=== PATIENT | female | born 1980 | race African-American/Black ===

== ENCOUNTER 2016-11-27 21:29 | Emergency (ER) | payer MEDICAID ==
[2016-11-27 21:48] LABS: ABSOLUTE BASOPHILS # (AUTO) 0.1 10^3/uL (0.0-0.2); ABSOLUTE EOSINOPHILS # (AUTO) 0.2 10^3/uL (0.0-0.6); ABSOLUTE LYMPHOCYTES (AUTO) 2.5 10^3/uL (0.5-4.7); ABSOLUTE MONOCYTES (AUTO) 0.9 10^3/uL (0.1-1.4); ABSOLUTE NEUT (AUTO) 7.1 10^3/uL (1.7-8.2); BASOPHILS % (AUTO) 0.7 % (0-2); EOSINOPHILS % (AUTO) 1.5 % (0-6); HEMATOCRIT 41.9 % (36.0-47.0); HEMOGLOBIN 13.5 g/dL (12.0-15.5); HGB HCT DIFFERENCE -1.4; LYMPHOCYTES % (AUTO) 23.4 % (13-45); MEAN CORPUSCULAR HEMOGLOBIN 25.2 pg (27.0-33.4); MEAN CORPUSCULAR HGB CONC 32.1 g/dL (32.0-36.0); MEAN CORPUSCULAR VOLUME 78 fl (80-97); MONOCYTES % (AUTO) 8.2 % (3-13); RED BLOOD COUNT 5.35 10^6/uL (3.72-5.28); RED CELL DISTRIBUTION WIDTH 15.9 % (11.5-14.0); SEGMENTED NEUTROPHILS % (AUTO) 66.2 % (42-78); WHITE BLOOD COUNT 10.8 10^3/uL (4.0-10.5)
[2016-11-27] MEDS ORDERED: HALOPERIDOL LACTATE INJ 5 MG/1 ML VIAL IV ONE (23:17)
[2016-11-27] MEDS ORDERED: KETOROLAC TROMETHAMINE INJ/PF 30 MG/1 ML SDV IV ONE (23:17)
[2016-11-27] MEDS ORDERED: NORMAL SALINE 1000 ML 1,000 ML IV ONE (23:18)
[2016-11-27 23:19] LABS: ALANINE AMINOTRANSFERASE 21 U/L (9-52); ALBUMIN 3.7 g/dL (3.5-5.0); ALKALINE PHOSPHATASE 100 U/L (38-126); ANION GAP 9 (5-19); ASPARTATE AMINO TRANSFERASE 31 U/L (14-36); BILIRUBIN,DIRECT 0.4 mg/dL (0.0-0.4); BILIRUBIN,TOTAL 0.6 mg/dL (0.2-1.3); BLOOD UREA NITROGEN 13 mg/dL (7-20); CARBON DIOXIDE 22 mmol/L (22-30); CHLORIDE 106 mmol/L (98-107); CREATININE RESULT 0.98 mg/dL (0.52-1.25); GLUCOSE 94 mg/dL (75-110); POTASSIUM 3.9 mmol/L (3.6-5.0); SODIUM 137.2 mmol/L (137-145); TOTAL PROTEIN 6.3 g/dL (6.3-8.2)
--- NOTE | 2016-11-27 23:21 | ER Document Report ---
ED General - General Chief Complaint: Syncope Stated Complaint: SYNCOPY Time Seen by Provider: 11/27/16 22:13 Notes: Patient is a 36 year old female who presents with multiple complaints. Her main concern appears to be that she had a syncopal episode prior to arrival. Patient states when she was cooking dinner she felt lightheaded, nauseated and like she was about to pass out. She apparently then fell to the floor spilling her water but did not have a complete loss of consciousness. Patient arrives stating that she feels "terrible". Patient is a difficult historian and is reluctant to provide additional details asking to go home almost immediately upon my initial assessment. She does also note that she has had a constant, dull, aching frontal headache since yesterday. Lights and sounds worsen the headache. She has not tried anything to improve the headache. Denies any associated fever or constitutional symptoms. She has not had any diarrhea, vomiting, chest pain, shortness of breath, neck pain or altered mental status. She has not seen her primary care doctor regarding today's concerns. TRAVEL OUTSIDE OF THE [place] IN LAST 30 DAYS: No - Related Data Allergies/Adverse Reactions: latex [Latex] Allergy (Verified 11/27/16 21:48) morphine [Morphine] Allergy (Verified 11/27/16 21:48) Home Medications: Current Home Medications Montelukast Sodium 10 mg PO DAILY 11/27/16 [History] Past Medical History - General Information source: Patient - Social History Smoking Status: Current Some Day Smoker Frequency of alcohol use: Occasional Drug Abuse: None Lives with: Family Family History: Reviewed & Not Pertinent Past Surgical History: Reports: Hx Section - x3, Hx Tubal Ligation Review of Systems - Review of Systems Notes: Constitutional: Negative for fever. HENT: Negative for sore throat. Eyes: Negative for visual changes. Cardiovascular: Negative for chest pain. Respiratory: Negative for shortness of breath. Gastrointestinal: Negative for abdominal pain, vomiting or diarrhea. Genitourinary: Negative for dysuria. Musculoskeletal: Negative for back pain. Skin: Negative for rash. Neurological: Positive for headache 10 point ROS negative except as marked above and in HPI. Physical Exam - Vital signs Vitals: Temp Resp BP Pulse Ox 98.2 F 18 115/75 98 11/27/16 21:40 11/27/16 21:40 11/27/16 21:40 11/27/16 21:40 Interpretation: Normal Notes: PHYSICAL EXAMINATION: GENERAL: Appears somewhat uncomfortable but in no acute distress HEAD: Atraumatic, normocephalic. EYES: Pupils equal round and reactive to light, extraocular movements intact, sclera anicteric, conjunctiva are normal. ENT: nares patent, oropharynx clear without exudates. Moist mucous membranes. NECK: Normal range of motion, supple without lymphadenopathy LUNGS: Breath sounds clear to auscultation bilaterally and equal. No wheezes rales or rhonchi. HEART: Regular rate and rhythm without murmurs ABDOMEN: Soft, nontender, normoactive bowel sounds. No guarding, no rebound. No masses appreciated. EXTREMITIES: Normal range of motion, no pitting or edema. No cyanosis. NEUROLOGICAL: Face symmetric. Tongue protrudes midline. Extraocular motions intact. Pupils are 2 mm and equally reactive. Normal speech. 5 out of 5 strength in both the distal and proximal upper and lower extremities bilaterally. Sensation is grossly intact throughout. Finger to nose testing normal. Pronator drift normal. PSYCH: Guarded on contact. Reluctant to open her eyes on exam. SKIN: Warm, Dry, normal turgor, no rashes or lesions noted. Course - Re-evaluation Re-evalutation: 11/27/16 23:19 Patient presents with multiple vague complaints that did not appear to be concerning for any acute life-threatening pathology. Vitals are within normal limits at triage and at time of discharge. There is a history of a possible syncopal episode prior to arrival. Patient does deny losing consciousness. Patient normotensive, alert, without focal neurologic deficits at time of arrival. Denies syncope was during exertion. No preceding symptoms of palpitations, chest pain, or shortness of breath. Patient asymptomatic at time of arrival. EKG is without evidence of HCOM, right heart strain, ST changes to suggest ischemia, prolong QTc, delta wave, epsilon wave, or Brugada syndrome. Patient denies any family history of sudden cardiac , personal history of of structural heart disease. Patient denies any symptoms to suggest an acute PE , IN, TAD, SAH, seizure, or acute GI bleed as the etiology of their syncope today. On exam, no murmurs to suggest critical aortic stenosis as possible etiology. Patient is also complaining of a headache that she has had approximately for 2 days. Headache was not maximal in onset, patient has no focal neurologic deficits, no nuchal rigidity, vital signs within normal limits , no papilledema, and patient is overall well in appearance. Based on clinical history and examination I do not suspect an acute subarachnoid hemorrhage, dural venous sinus thrombosis, acute meningitis, or intercranial mass. Given my low clinical suspicion for any acute life-threatening etiology, I do not feel advanced neuro imaging or laboratory testing is indicated at this time. Will proceed with headache cocktail and reassess. 0100 Patient has had significant improvement in her overall feeling of being unwell. Her headache has resolved. Her labs are unremarkable. At this time will discharge with return precautions and follow-up recommendations. Verbal discharge instructions given a the bedside and opportunity for questions given. Medication warnings reviewed. Patient is in agreement with this plan and has verbalized understanding of return precautions and the need for primary care follow-up in the next 24-72 hours. - Vital Signs Vital signs: Temp Pulse Resp BP Pulse Ox 98.2 F 12 117/77 99 11/27/16 21:40 11/28/16 01:01 11/28/16 01:00 11/28/16 01:01 - Laboratory Result Diagrams: 11/27/16 21:30 11/27/16 22:40 Laboratory results interpreted by me: 11/27/16 21:30 WBC 10.8 H RBC 5.35 H MCV 78 L MCH 25.2 L RDW 15.9 H - EKG Interpretation by Me Additional EKG results interpreted by me: 11/28/16 03:48 Normal sinus rhythm. Rate 72. No ST elevations or depressions. QTC is 443. Discharge - Discharge Clinical Impression: Syncope Qualifiers: Syncope type: unspecified Qualified Code(s): R55 - Syncope and collapse Fatigue Qualifiers: Fatigue type: unspecified Qualified Code(s): R53.83 - Other fatigue Headache Qualifiers: Headache type: unspecified Headache chronicity pattern: acute headache Intractability: not intractable Qualified Code(s): R51 - Headache Condition: Good Disposition: HOME, SELF-CARE Additional Instructions: You were seen today after an episode of passing out. Your EKG here is normal. At this time, we do not feel that your episode of passing out was from any life- threatening cause. Please drink plenty of fluids over the next several days. Return to emergency department if you have any further episodes of syncope, headache, weakness, numbness, chest pain, or shortness of breath. Please follow up closely with your primary care physician. Forms: Return to School, Return to Work
[2016-11-28 01:23] VITALS: BP 117/77
--- NOTE | 2016-11-28 07:32 | EKG REPORT ---
SEVERITY:- BORDERLINE ECG - SINUS RHYTHM NONSPECIFIC ST-T CHANGES- INFERIOR LEADS : Confirmed by: Kamar Parada MD 28-Nov-2016 07:32:10
== END 2016-11-28 01:29 | disposition home or self-care (01) ==
LOC: ER 21:29
DX: R55 Syncope and collapse (principal); R53.83 Other fatigue; R51 Headache; Z79.899 Other long term (current) drug therapy
CPT/HCPCS: 93005; 99285; 96361; 96374; 96375; 36415; 84703; 85025; 80053; 93010; J1630; J1885; J7030

== ENCOUNTER 2017-02-28 20:21 | Emergency (ER) | payer MEDICAID ==
[2017-02-28 20:27] VITALS: BP 134/66
[2017-02-28] MEDS ORDERED: AMOXICILLIN TRIHYDRATE 500 MG CAPSULE PO ONE (20:59)
--- NOTE | 2017-02-28 21:02 | ER Document Report ---
HPI - HPI Patient complains to provider of: facial pain, congestion, ear pain Pain Level: 5 Context: Patient is a 36-year-old female that comes emergency department for chief complaint of congestion, right-sided facial pain in her sinus area, and right ear pain. Symptoms started 4 days ago. She states she has seasonal allergies she normally takes medications for but has not been on them for a couple of weeks because she ran out. She denies smoking, fever, sore throat, cough, neck stiffness. LMP within the past month, has had tubal ligation. - REPRODUCTIVE Reproductive: DENIES: : Past Medical History - General Information source: Patient - Social History Smoking Status: Never Smoker Frequency of alcohol use: None Drug Abuse: None Lives with: Family Family History: Reviewed & Not Pertinent - Medical History Medical History: Negative Past Surgical History: Reports: Hx Section - x3, Hx Tubal Ligation - Immunizations Immunizations up to date: Yes Hx Diphtheria, Pertussis, Tetanus Vaccination: Yes Vertical Provider Document - CONSTITUTIONAL General Appearance: WD/WN, No Apparent Distress - INFECTION CONTROL TRAVEL OUTSIDE OF THE [place] IN LAST 30 DAYS: No - HEENT HEENT: negative: Normal ENT Exam - Swollen nasal turbinates on the right side, right-sided maxillary sinus tenderness, mild erythema of the tympanic membrane but no effusion, bulging, loss of landmarks. Oral exam, pharyngeal exam, remaining ENT exam unremarkable - NECK Neck: Normal Inspection - RESPIRATORY Respiratory: Breath Sounds Normal, No Respiratory Distress O2 Sat by Pulse Oximetry: 99 - CARDIOVASCULAR Cardiovascular: Regular Rate, Regular Rhythm - GI/ABDOMEN Gastrointestinal: Abdomen Soft, Abdomen Non-Tender - NEURO Level of Consciousness: Awake, Alert, Appropriate Course - Re-evaluation Re-evalutation: Examination consistent with sinus infection, she is very tender right maxillary sinus, swollen right side and indeterminate, no polyp, abscess, no other concerning abnormality's on exam. - Vital Signs Vital signs: Temp Pulse Resp BP Pulse Ox 99.0 F 79 18 134/66 H 99 02/28/17 20:27 02/28/17 20:27 02/28/17 20:27 02/28/17 20:27 02/28/17 20:27 Discharge - Discharge Clinical Impression: Sinus congestion, Right ear pain Sinusitis Qualifiers: Sinusitis location: maxillary Chronicity: acute Recurrence: non-recurrent Qualified Code(s): J01.00 - Acute maxillary sinusitis, unspecified Condition: Stable Disposition: HOME, SELF-CARE Additional Instructions: Examination consistent with congestion from seasonal allergies and also secondary sinus infection. Take amoxicillin as prescribed, Flonase, Sherice, Sudafed. Drink plenty of fluids, take ibuprofen if needed for pain. Follow-up with primary care for additional management. Return to the emergency department for any concerning or worsening symptoms including severe headache, vomiting, difficulty breathing, spiking fever, or any other concerning symptoms. Prescriptions: Amoxicillin Trihydrate [Amoxil 875 mg Tablet] 1 tab PO BID #20 tablet Fexofenadine HCl [Sherice Allergy] 180 mg PO DAILY #30 tablet Fluticasone Propionate [Flonase Nasal Ravia 50 Mcg/Ravia 16 gm] 2 sprays NASL Q12 #1 inhaler Pseudoephedrine HCl [Sudafed 12-Hour] 120 mg PO Q12 #20 tablet.sa Forms: Return to Work Referrals: RUPAL WEEKS MD [Primary Care Provider] - Follow up as needed
== END 2017-02-28 21:22 | disposition home or self-care (01) ==
LOC: ER 20:21
DX: H92.01 Otalgia, right ear (principal); J34.89 Other specified disorders of nose and nasal sinuses; R09.81 Nasal congestion
CPT/HCPCS: 99282

== ENCOUNTER 2017-04-09 09:43 | Emergency (ER) | payer MEDICAID ==
--- NOTE | 2017-04-09 09:52 | ER Document Report ---
ED Medical Screen (RME) - General Chief Complaint: Headache Stated Complaint: HEADACHE Time Seen by Provider: 04/09/17 09:50 Mode of Arrival: Wheelchair Information source: Patient TRAVEL OUTSIDE OF THE [place] IN LAST 30 DAYS: No - HPI Patient complains to provider of: MYRICK Onset: Just prior to arrival - pt with acute onset of severe MYRICK and stuttering just prior to arrival - Related Data Allergies/Adverse Reactions: latex [Latex] Allergy (Verified 04/09/17 09:44) morphine [Morphine] Allergy (Verified 04/09/17 09:44) Past Medical History Renal/ Medical History: Denies: Hx Peritoneal Dialysis Past Surgical History: Reports: Hx Section - x3, Hx Tubal Ligation - Immunizations Immunizations up to date: Yes Hx Diphtheria, Pertussis, Tetanus Vaccination: Yes
--- NOTE | 2017-04-09 10:14 | RADIOLOGY REPORT (SQ) ---
EXAM DESCRIPTION: CT HEAD WITHOUT COMPLETED DATE/TIME: 04/09/2017 10:04 am REASON FOR STUDY: MYRICK COMPARISON: None. TECHNIQUE: Axial images acquired through the brain without intravenous contrast. Images reviewed wi th bone, brain and subdural windows. Images stored on PACS. All CT scanners at this facility use dose modulation, iterative reconstruction, and/or weight based d osing when appropriate to reduce radiation dose to as low as reasonably achievable (ALARA). [facility]: Dose Right [facility]: CareDose [facility]: Dose Right [facility]: Teradose 4D [facility]: BioPetroClean RADIATION DOSE: CT Rad equipment meets quality standard of care and radiation dose reduction techniq ues were employed. CTDIvol: 64.6 mGy. DLP: 1034 mGy-cm. mGy. LIMITATIONS: None. FINDINGS: VENTRICLES: Normal size and contour. CEREBRUM: No masses. No hemorrhage. No midline shift. No evidence for acute infarction. Normal gra y/white matter differentiation. No areas of low density in the white matter. CEREBELLUM: No masses. No hemorrhage. No alteration of density. No evidence for acute infarction. EXTRAAXIAL SPACES: No fluid collections. No masses. ORBITS AND GLOBE: No intra- or extraconal masses. Normal contour of globe without masses. CALVARIUM: No fracture. PARANASAL SINUSES: No fluid or mucosal thickening. SOFT TISSUES: No mass or hematoma. OTHER: No other significant finding. IMPRESSION: NORMAL BRAIN CT WITHOUT CONTRAST. EVIDENCE OF ACUTE STROKE: NO. COMMENT: Quality ID # [id number]: Final reports with documentation of one or more dose reduction techniques (e.g., Automated exposure control, adjustment of the mA and/or kV according to patient size, use of iterative reconstruction technique) TECHNICAL DOCUMENTATION: JOB ID: [id number] [employer]- All Rights Reserved
[2017-04-09 10:28] LABS: ABSOLUTE BASOPHILS # (AUTO) 0.1 10^3/uL (0.0-0.2); ABSOLUTE EOSINOPHILS # (AUTO) 0.1 10^3/uL (0.0-0.6); ABSOLUTE LYMPHOCYTES (AUTO) 2.7 10^3/uL (0.5-4.7); ABSOLUTE MONOCYTES (AUTO) 0.9 10^3/uL (0.1-1.4); ABSOLUTE NEUT (AUTO) 8.9 10^3/uL (1.7-8.2); BASOPHILS % (AUTO) 0.9 % (0-2); EOSINOPHILS % (AUTO) 1.1 % (0-6); HEMATOCRIT 38.5 % (36.0-47.0); HEMOGLOBIN 12.5 g/dL (12.0-15.5); MEAN CORPUSCULAR HEMOGLOBIN 24.3 pg (27.0-33.4); MEAN CORPUSCULAR HGB CONC 32.4 g/dL (32.0-36.0); MEAN CORPUSCULAR VOLUME 75 fl (80-97); MONOCYTES % (AUTO) 7.4 % (3-13); PLATELET COUNT 301 10^3/uL (150-450); RED BLOOD COUNT 5.15 10^6/uL (3.72-5.28); RED CELL DISTRIBUTION WIDTH 15.9 % (11.5-14.0); SEGMENTED NEUTROPHILS % (AUTO) 69.6 % (42-78); TOTAL CELLS COUNTED % (AUTO) 100 %; WHITE BLOOD COUNT 12.8 10^3/uL (4.0-10.5)
[2017-04-09] MEDS ORDERED: ONDANSETRON HCL INJ/PF 4 MG/2 ML SDV IV ONE (10:31)
[2017-04-09] MEDS ORDERED: PROCHLORPERAZINE EDISYLATE INJ 10 MG/2 ML VIAL IV ONE (10:31)
[2017-04-09 10:39] LABS: INTERNATIONAL RATION (INR) 0.91; PROTHROMBIN TIME 12.9 SEC (11.4-15.4)
[2017-04-09 10:46] LABS: ALANINE AMINOTRANSFERASE 41 U/L (9-52); ALBUMIN 5.1 g/dL (3.5-5.0); ALKALINE PHOSPHATASE 131 U/L (38-126); ANION GAP 12 (5-19); ASPARTATE AMINO TRANSFERASE 27 U/L (14-36); BILIRUBIN,DIRECT 0.4 mg/dL (0.0-0.4); BILIRUBIN,TOTAL 0.5 mg/dL (0.2-1.3); BLOOD UREA NITROGEN 10 mg/dL (7-20); CALCIUM 9.8 mg/dL (8.4-10.2); CARBON DIOXIDE 25 mmol/L (22-30); CHLORIDE 104 mmol/L (98-107); GLUCOSE 105 mg/dL (75-110); POTASSIUM 4.1 mmol/L (3.6-5.0); SODIUM 140.8 mmol/L (137-145); TOTAL PROTEIN 8.7 g/dL (6.3-8.2)
--- NOTE | 2017-04-09 10:48 | RADIOLOGY REPORT (SQ) ---
EXAM DESCRIPTION: CHEST SINGLE VIEW COMPLETED DATE/TIME: 04/09/2017 10:40 am REASON FOR STUDY: STROKE PROTOCOL COMPARISON: None. EXAM PARAMETERS: NUMBER OF VIEWS: One view. TECHNIQUE: Single frontal radiographic view of the chest acquired. RADIATION DOSE: NA LIMITATIONS: AP lordotic portable chest FINDINGS: LUNGS AND PLEURA: No opacities, masses or pneumothorax. No pleural effusion. MEDIASTINUM AND HILAR STRUCTURES: No masses. Contour normal. HEART AND VASCULAR STRUCTURES: Heart normal in size. Normal vasculature. BONES: No acute findings. HARDWARE: None in the chest. OTHER: No other significant finding. IMPRESSION: NO ACUTE RADIOGRAPHIC FINDING IN THE CHEST. TECHNICAL DOCUMENTATION: JOB ID: [id number] [employer]- All Rights Reserved
--- NOTE | 2017-04-09 11:46 | RADIOLOGY REPORT (SQ) ---
EXAM DESCRIPTION: MRI HEAD WITHOUT COMPLETED DATE/TIME: 04/09/2017 11:24 am REASON FOR STUDY: Left lower extremity weakness COMPARISON: None. TECHNIQUE: Multiplanar imaging includes non-contrasted T1, T2, FLAIR, and diffusion with ADC map seq uences. Images stored on PACS. LIMITATIONS: None. FINDINGS: ANATOMY: No anomalies. Normal vascular flow voids. Pituitary fossa normal. CSF SPACES: Normal in size and contour. No hemorrhage. CEREBRUM: Sulci and gyri normal in size and contour. Normal white matter signal on FLAIR imaging. No evidence of hemorrhage, mass, or extraaxial fluid collection. POSTERIOR FOSSA: No signal alteration. No hemorrhage. No edema, masses or mass effect. Internal radha tory canals, cerebello-pontine angles, mastoids normal. DIFFUSION IMAGING: Negative for acute or sub-acute infarction. ORBITS: No masses. Globes normal. PARANASAL SINUSES: No fluid levels. Mucosa normal. OTHER: Report discussed with Dr. Chandler IMPRESSION: NORMAL MRI OF THE BRAIN WITHOUT INTRAVENOUS GADOLINIUM CONTRAST. EVIDENCE OF ACUTE STROKE: NO. TECHNICAL DOCUMENTATION: JOB ID: [id number] [employer]- All Rights Reserved
--- NOTE | 2017-04-09 12:32 | ER Document Report ---
ED General - General Chief Complaint: Headache Stated Complaint: HEADACHE Time Seen by Provider: 04/09/17 09:50 Mode of Arrival: Wheelchair TRAVEL OUTSIDE OF THE [place] IN LAST 30 DAYS: No - HPI Patient complains to provider of: Headache stuttering speech left-sided weakness Notes: Patient is coming in for the above-stated symptoms. Patient states started approximately 8:00 a 30 with symptoms. Patient states associated with acute onset of excruciating left-sided headache. Patient denies history of migraines the past denies any other past medical history except for being told that her blood pressure has been elevated not on any medication. Patient denies fevers chills nausea vomiting denies any head trauma. Upon my evaluation patient is stuttering intermittently with her speech. Patient states that she can barely move her left leg and has difficulty moving her left arm. - Related Data Allergies/Adverse Reactions: latex [Latex] Allergy (Verified 04/09/17 09:44) morphine [Morphine] Allergy (Verified 04/09/17 09:44) Past Medical History - General Information source: Patient - Social History Smoking Status: Unknown if Ever Smoked Family History: Reviewed & Not Pertinent Renal/ Medical History: Denies: Hx Peritoneal Dialysis Past Surgical History: Reports: Hx Section - x3, Hx Tubal Ligation - Immunizations Immunizations up to date: Yes Hx Diphtheria, Pertussis, Tetanus Vaccination: Yes Review of Systems - Review of Systems Constitutional: No symptoms reported EENT: No symptoms reported Cardiovascular: No symptoms reported Respiratory: No symptoms reported Gastrointestinal: No symptoms reported Genitourinary: No symptoms reported Female Genitourinary: No symptoms reported Musculoskeletal: No symptoms reported Skin: No symptoms reported Hematologic/Lymphatic: No symptoms reported Neurological/Psychological: Other - Stuttering speech left extremity weakness Physical Exam - Vital signs Vitals: Temp Pulse BP Pulse Ox 98.4 F 99 179/126 H 99 04/09/17 09:51 04/09/17 09:51 04/09/17 09:51 04/09/17 09:51 Interpretation: Normal - General General appearance: Appears well, Alert - HEENT Head: Normocephalic, Atraumatic Eyes: Normal Pupils: PERRL - Respiratory Respiratory status: No respiratory distress Chest status: Nontender Breath sounds: Normal Chest palpation: Normal - Cardiovascular Rhythm: Regular Heart sounds: Normal auscultation Murmur: No - Abdominal Inspection: Normal Distension: No distension Bowel sounds: Normal Tenderness: Nontender Organomegaly: No organomegaly - Back Back: Normal, Nontender - Extremities General upper extremity: Normal inspection, Nontender General lower extremity: Normal inspection - Neurological Neuro grossly intact: Yes Cognition: Normal Orientation: AAOx4 Joshua Coma Scale Eye Opening: Spontaneous [place] Coma Scale Verbal: Oriented [place] Coma Scale Motor: Obeys Commands Joshua Coma Scale Total: 15 Speech: Normal Cranial nerves: Normal Sensory: Normal Notes: Please refer to NIH scale Neurological examination was July 19 patient stuttering however this is intermittently. Patient upon reading pictures was able to tell me without any stuttering aphasia described a picture read other words until the last 2 sentences and patient started stuttering again. Patient upon smiling with smile initially asymmetrically with flattening on the left side however patient when becoming upset and no asymmetry of her face crying especially when the patient made sad expressions with her mouth. No deviation of the tongue. Left upper extremity was unaffected good push pull as well. Patient was able to perform ataxia testing with the left hand without difficulty. Patient upon lifting her leg did resist my attempts to lift her leg up patient then would almost bring the leg down herself however would not hit stretcher however patient will not lift her leg up on the left side is high she could with the right - Psychological Associated symptoms: Normal affect, Normal mood - Skin Skin Temperature: Warm Skin Moisture: Dry Skin Color: Normal Course - Re-evaluation Re-evalutation: 04/09/17 16:16 Very inconsistent neurological examination with a nice coil of 3. Patient would be in the window for TPA of the leg and night score for stroke I did explain to the patient the risk factors of TPA negative head CT I did discuss with her neurology is that we had time to get TPA greater than a time limit decision was made to undergo a quick MRI. MRI was negative for any signs of stroke also any signs of acute bleed. Patient was given IV Compazine and Zofran while waiting for an MRI patient returned totally asymptomatic. 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 Explained to patient she will need to follow-up with neurology. They request that we monitor the patient here for quite some time but after I last evaluation patient states she would likely now that she needs to go berry picker her kids. Patient was able ambulate without difficulty see no neurological deficits at this time patient will be discharged on follow-up primary care physician. - Vital Signs Vital signs: Temp Pulse Resp BP Pulse Ox 98.4 F 99 21 H 179/126 H 100 04/09/17 09:51 04/09/17 09:51 04/09/17 10:16 04/09/17 09:51 04/09/17 10:16 - Laboratory Result Diagrams: 04/09/17 10:14 04/09/17 10:14 Laboratory results interpreted by me: 04/09/17 04/09/17 10:14 10:14 WBC 12.8 H MCV 75 L MCH 24.3 L RDW 15.9 H Absolute Neutrophils 8.9 H Alkaline Phosphatase 131 H Total Protein 8.7 H Albumin 5.1 H Critical Care Note - Critical Care Note Total time excluding time spent on procedures (mins): 35 Comments: Multiple evaluation due to possible stroke Discharge - Discharge Clinical Impression: Migraine Qualifiers: Migraine type: unspecified Status migrainosus presence: without status migrainosus Intractability: not intractable Qualified Code(s): G43.909 - Migraine, unspecified, not intractable, without status migrainosus Instructions: Headache ([facility]), Migraine Headache ([facility]), Neurologist Additional Instructions: I do believe your symptoms today were caused by a very bad migraine. Your MRI does not show any signs of stroke or bleeding. Sometimes migraines can calls her logical symptoms such as stuttering weakness and he can be one-sided mimicking a stroke. Again there is no signs of stroke or your MRI. Please take medication as prescribed for your headache I would highly recommend following up with a neurologist. Return to the ER if symptoms worsen. Prescriptions: Ondansetron [Zofran Odt] 4 mg PO Q6 PRN #30 tab.rapdis PRN Reason: For Nausea/Vomiting Prochlorperazine Maleate [Compazine] 5 mg PO Q6 #30 tablet Forms: Return to Work Referrals: RUPAL WEEKS MD [Primary Care Provider] - Follow up as needed ED NIH Stroke Scale - NIH Stroke Scale When completed:: Before Alteplase *: 1. NIH scale should be completed with appropriate accompanying assessment tools. *: 2. The NIH should reflect what the patient is capable of doing and should not be coached by the clinician. 1a. Level of Consciousness: 0=Alert;keenly responsive -: 1=Drowsy -: 2=Obtunded -: 3=Coma/unresponsive or reflex to noxious stimuli. 1a. Responses: 0 1b. Orientation Questions: a. What month is it? -: b. How old are you? -: 0=Answers both questions correctly. -: 1=Answers one question correctly or patient is intubated or has orotracheal trauma. -: 2=Answers neither question correctly. 1b. Responses: 0 1c. Response to commands: a. Open and close eyes? -: b. Control Clerk Head and release hand? -: Credit is given despite weakness. Demonstration of task is permitted. Substitute command if hands cannot be used. -: 0=Performs both tasks correctly -: 1=Performs one task correctly -: 2=Performs neither task correctly 1c. Responses: 0 2. Gaze: Establish eye contact and instruct patient to "Follow my finger" -: 0=Normal -: 1=Partial gaze palsy. Gaze is abnormal in one or both eyes, but where forced deviation or total gaze paresis is not present. -: 2=Forced deviation or total gaze paresis. 2. Responses: 0 3. Visual Ruiz: Sees fingers in all four quadrants. -: 0=No visual loss. -: 1=Partial hemianopsia. -: 2=Complete hemianopsia. -: 3=Bilateral hemianopsia (including Cortical blindness) 3. Responses: 0 4. Facial Movement: Instruct patient to: -: a. Show me your teeth -: b. Raise your eyebrows -: c. Close your eyes -: d. Smile -: 0=Normal symmetrical movement -: 1=Minor paralysis (flattened nasolabial fold, asymmetry on smiling). -: 2=Partial paralysis (total or near total paralysis of lower face). -: 3=Complete paralysis of upper and lower face 4. Responses: 1 5. Motor functions (left arm): Alternate sides and extend each arm with palms down (90 degrees if sitting or 45 degrees for supine). -: 0=No drift;limb holds for full 10 seconds. -: 1=Drift; limb holds but drifts down before full 10 seconds, but does not hit bed. -: 2=Some effort against gravity; limb cannot get to or maintain position. -: 3=No effort against gravity; limb falls. -: 4=No movement. -: UN=Amputation, joint fusion, explain in comments. 5. Responses (left arm): 0 5. Motor Functions (right arm): Alternate sides and extend each arm with palms down (90 degrees if sitting or 45 degrees for supine). -: 0=No drift;limb holds for full 10 seconds. -: 1=Drift; limb holds but drifts down before full 10 seconds, but does not hit bed. -: 2=Some effort against gravity; limb cannot get to or maintain position. -: 3=No effort against gravity; limb falls. -: 4=No movement. -: UN=Amputation, joint fusion, explain in comments. 5. Responses (right arm): 0 6. Motor Functions (left leg): With patient lying supine, alternate sides and extend each leg (30 degrees always while supine). -: 0=No drift, leg holds position for full 5 seconds -: 1=Drift; leg falls before full 5 seconds but does not hit bed. -: 2=Some effort against gravity, leg falls to bed but some effort against gravity. -: 3=No effort against gravity, leg falls to bed immediately. -: 4=No movement. -: UN=Amputation, joint fusion; explain in comments. 6. Responses (left leg): 2 6. Motor Functions (right leg): With patient lying supine, alternate sides and extend each leg (30 degrees always while supine). -: 0=No drift, leg holds position for full 5 seconds -: 1=Drift; leg falls before full 5 seconds but does not hit bed. -: 2=Some effort against gravity, leg falls to bed but some effort against gravity. -: 3=No effort against gravity, leg falls to bed immediately. -: 4=No movement. -: UN=Amputation, joint fusion; explain in comments. 6. Responses (right leg): 0 7. Limb Ataxia: With eyes open instruct patient to: -: a. "Touch your finger to your nose". -: b. "Touch your heel to your leal" -: 0=Absent -: 1=Present in one limb. -: 2=Present in two limbs. -: UN=Amputation or joint fusion; explain in comments. 7. Responses: 0 8. Sensory: Test sensation using pinprick or noxious stimuli. Test as many body parts as possible. -: 0=Normal;no sensory loss -: 1=Mile to moderate sensory loss (patient feels pin prick but is less sharp on affected side). -: 2=Severe or total sensory loss. 8. Responses: 0 9. Best Language: Instruct patient to: -: a. "Describe what you see in this picture." -: b. "Name the items in this picture." -: c. "Read these sentences." -: 0=No aphasia, normal -: 1=Mild to moderate aphasia. -: 2=Severe aphasia -: 3=Mute, global aphasia, no usable speech or auditory comprehension. 9. Responses: 0 10. Articulation, Dysarthia: Instruct patient to: -: "Read these words" or "Repeat these words" -: 0=Normal -: 1=Mild to moderate; patient may slur some words but can be understood without difficulty. -: 2=Severe; patients speech so slurred as to be unintelligible in the absence of dysphasia. -: UN=Intubated or other physical barrier, explain in comments. 10. Responses: 0 11. Extinction or inattention: 0=No abnormality -: 1= Visual, tactile, auditory, spatial, or personal inattention or extinction to bilateral simulation in one or the sensory modalities. -: 2=Profound galen-inattention or galen-inattention to more than one modality; does not recognize own hand. 11. Responses: 0 Total Score: 3
[2017-04-09] MEDS ORDERED: NORMAL SALINE 1000 ML 1,000 ML IV ONE (12:33)
[2017-04-09 20:28] VITALS: BP 131/63
== END 2017-04-09 14:15 | disposition home or self-care (01) ==
LOC: ER 09:43
DX: G43.909 Migraine, unspecified, not intractable, without status migrainosus (principal); R53.1 Weakness; R29.703 NIHSS score 3
CPT/HCPCS: 99291; 96374; 96375; 36415; 84703; 85025; 85610; 85730; 80053; 70551; 71045; 70450; J0780; J2405

== ENCOUNTER 2017-08-02 11:37 | Emergency (ER) | payer MEDICAID ==
[2017-08-02] MEDS ORDERED: RINGERS SOLUTION,LACTATED 1,000 ML IV ONE (12:00)
[2017-08-02] MEDS ORDERED: FENTANYL CITRATE INJ/PF 100 MCG/2 ML AMPUL IV ONE ×2 (12:00→14:49)
[2017-08-02] MEDS ORDERED: ONDANSETRON HCL INJ/PF 4 MG/2 ML SDV IV ONE (12:00)
--- NOTE | 2017-08-02 12:01 | ER Document Report ---
ED Medical Screen (RME) - General Chief Complaint: Abdominal Pain Stated Complaint: ABDOMINAL PAIN Time Seen by Provider: 08/02/17 11:56 Notes: RAPID MEDICAL EVALUATION DISCLOSURE I have seen this patient as part of a Rapid Medical Evaluation and, if applicable, placed any initially appropriate orders. The patient will be seen and fully evaluated, including a full history and physical exam, by a provider ( in Main ED or Fast Track) when a room becomes available. 37-year-old female here with complaints of upper abdominal pain nausea vomiting started about an hour ago. She reports that she drank alcohol last night and wonders if this had anything to do with it. She does not normally drink alcohol , she reports. Difficult to obtain further history or review of systems or perform exam due to patient moaning, groaning, rocking back and forth, and actively vomiting. TRAVEL OUTSIDE OF THE [place] IN LAST 30 DAYS: No - Related Data Allergies/Adverse Reactions: latex [Latex] Allergy (Verified 08/02/17 11:57) morphine [Morphine] Allergy (Verified 08/02/17 11:57) Past Medical History Renal/ Medical History: Denies: Hx Peritoneal Dialysis Past Surgical History: Reports: Hx Section - x3, Hx Tubal Ligation - Immunizations Immunizations up to date: Yes Hx Diphtheria, Pertussis, Tetanus Vaccination: Yes Physical Exam - Vital signs Vitals: Temp Pulse Resp BP Pulse Ox 97.8 F 100 24 H 154/110 H 93 08/02/17 11:47 08/02/17 11:47 08/02/17 11:47 08/02/17 11:47 08/02/17 11:47 Course - Vital Signs Vital signs: Temp Pulse Resp BP Pulse Ox 97.8 F 100 24 H 154/110 H 93 08/02/17 11:47 08/02/17 11:47 08/02/17 11:47 08/02/17 11:47 08/02/17 11:47
[2017-08-02] MEDS ORDERED: PROMETHAZINE HCL INJ 25 MG/1 ML VIAL IV ONE (12:09)
[2017-08-02 12:35] LABS: ABSOLUTE BASOPHILS # (AUTO) 0.1 10^3/uL (0.0-0.2); ABSOLUTE LYMPHOCYTES (AUTO) 1.7 10^3/uL (0.5-4.7); ABSOLUTE NEUT (AUTO) 9.2 10^3/uL (1.7-8.2); BASOPHILS % (AUTO) 0.8 % (0-2); EOSINOPHILS % (AUTO) 0.4 % (0-6); HEMATOCRIT 39.4 % (36.0-47.0); HEMOGLOBIN 12.9 g/dL (12.0-15.5); LYMPHOCYTES % (AUTO) 14.1 % (13-45); MEAN CORPUSCULAR HEMOGLOBIN 24.7 pg (27.0-33.4); MEAN CORPUSCULAR HGB CONC 32.8 g/dL (32.0-36.0); MEAN CORPUSCULAR VOLUME 75 fl (80-97); MONOCYTES % (AUTO) 8.1 % (3-13); PLATELET COUNT 290 10^3/uL (150-450); RED BLOOD COUNT 5.24 10^6/uL (3.72-5.28); RED CELL DISTRIBUTION WIDTH 15.4 % (11.5-14.0); SEGMENTED NEUTROPHILS % (AUTO) 76.6 % (42-78); TOTAL CELLS COUNTED % (AUTO) 100 %
[2017-08-02] MEDS ORDERED: METOCLOPRAMIDE HCL INJ/PF 10 MG/2 ML SDV IV ONE ×2 (12:48→14:48)
[2017-08-02 12:50] LABS: ALANINE AMINOTRANSFERASE 32 U/L (9-52); ALBUMIN 5.1 g/dL (3.5-5.0); ALKALINE PHOSPHATASE 115 U/L (38-126); ANION GAP 17 (5-19); ASPARTATE AMINO TRANSFERASE 28 U/L (14-36); BILIRUBIN,DIRECT 0.4 mg/dL (0.0-0.4); BILIRUBIN,TOTAL 0.4 mg/dL (0.2-1.3); BLOOD UREA NITROGEN 10 mg/dL (7-20); CALCIUM 9.9 mg/dL (8.4-10.2); CARBON DIOXIDE 23 mmol/L (22-30); CHLORIDE 101 mmol/L (98-107); GLUCOSE 128 mg/dL (75-110); POTASSIUM 4.2 mmol/L (3.6-5.0); SODIUM 141.3 mmol/L (137-145); TOTAL PROTEIN 8.9 g/dL (6.3-8.2)
[2017-08-02] MEDS ORDERED: PANTOPRAZOLE SODIUM 40 MG VIAL IV ONE (12:51)
--- NOTE | 2017-08-02 14:05 | RADIOLOGY REPORT (SQ) ---
EXAM DESCRIPTION: CT ABD/PELVIS WITH IV ONLY COMPLETED DATE/TIME: 08/02/2017 1:54 pm REASON FOR STUDY: Acute abdominal pain COMPARISON: None. TECHNIQUE: CT scan of the abdomen and pelvis performed using helical scanning technique with dynamic intravenous contrast injection. No oral contrast. Images reviewed with lung, soft tissue, and bone windows. Reconstructed coronal and sagittal MPR images reviewed. Delayed images for evaluation of the urinary system also acquired. All images stored on PACS. All CT scanners at this facility use dose modulation, iterative reconstruction, and/or weight based d osing when appropriate to reduce radiation dose to as low as reasonably achievable (ALARA). [facility]: Dose Right [facility]: CareDose [facility]: Dose Right [facility]: Teradose 4D [facility]: Independent Space CONTRAST TYPE AND DOSE: contrast/concentration: Isovue 370.00 mg/ml; Total Contrast Delivered: 100.0 ml; Total Saline Delivered: 72.0 ml RENAL FUNCTION: BUN 10 creatinine 0.75. RADIATION DOSE: CT Rad equipment meets quality standard of care and radiation dose reduction techniq ues were employed. CTDIvol: 18.6 - 20.8 mGy. DLP: 2034 mGy-cm.. LIMITATIONS: None. FINDINGS: LOWER CHEST: No significant findings. No nodules or infiltrates. LIVER: Normal size. No masses. No dilated ducts. SPLEEN: Normal size. No focal lesions. PANCREAS: No masses. No significant calcifications. No adjacent inflammation or peripancreatic fluid collections. Pancreatic duct not dilated. GALLBLADDER: No identified stones by CT criteria. No inflammatory changes to suggest cholecystitis. ADRENAL GLANDS: No significant masses or asymmetry. RIGHT KIDNEY AND URETER: No solid masses. No significant calcifications. No hydronephrosis or hyd roureter. LEFT KIDNEY AND URETER: No solid masses. No significant calcifications. No hydronephrosis or hydr oureter. AORTA AND VESSELS: No aneurysm. No dissection. Renal arteries, SMA, celiac without stenosis. RETROPERITONEUM: No retroperitoneal adenopathy, hemorrhage or masses. BOWEL AND PERITONEAL CAVITY: No masses or inflammatory changes. No free fluid or peritoneal masses. APPENDIX: Normal. PELVIS: No mass. No free fluid. Normal bladder. ABDOMINAL WALL: No masses. No hernias. BONES: No significant or acute findings. OTHER: No other significant finding. IMPRESSION: NO SIGNIFICANT OR ACUTE FINDING IN THE ABDOMEN OR PELVIS ON CT SCAN WITH IV CONTRAST. TECHNICAL DOCUMENTATION: JOB ID: [id number] Quality ID # [id number]: Final reports with documentation of one or more dose reduction techniques (e.g., Au tomated exposure control, adjustment of the mA and/or kV according to patient size, use of iterative reconstruction technique) 2010 [employer]- All Rights Reserved Reading location - IP/workstation name: [email or web address]
[2017-08-02 14:50] LABS: APPEARANCE,URINE CLEAR; BILIRUBIN,URINE NEGATIVE (NEGATIVE); COLOR,URINE STRAW; GLUCOSE, URINE NEGATIVE (NEGATIVE); KETONES,URINE NEGATIVE (NEGATIVE); LEUKOCYTE ESTERASE,URINE NEGATIVE (NEGATIVE); NITRITE,URINE NEGATIVE (NEGATIVE); PROTEIN,URINE NEGATIVE (NEGATIVE); URINE SPECIFIC GRAVITY 1.041; UROBILINOGEN,URINE NEGATIVE mg/dL (<2.0)
[2017-08-02 15:07] LABS: URINE AMPHETAMINES SCREEN NEGATIVE; URINE BARBITURATES SCREEN NEGATIVE; URINE BENZODIAZEPINES SCREEN NEGATIVE; URINE COCAINE SCREEN UNCONFIRMED POSITIVE; URINE MARIJUANA (THC) SCREEN UNCONFIRMED POSITIVE; URINE METHADONE SCREEN NEGATIVE; URINE PHENCYCLIDINE SCREEN NEGATIVE
--- NOTE | 2017-08-02 16:37 | EKG REPORT ---
SEVERITY:- NORMAL ECG - SINUS RHYTHM : Confirmed by: Kamar Parada MD 02-Aug-2017 16:37:15
--- NOTE | 2017-08-02 16:41 | ER Document Report ---
ED GI/ - General Chief Complaint: Abdominal Pain Stated Complaint: ABDOMINAL PAIN Time Seen by Provider: 08/02/17 11:56 Mode of Arrival: Ambulatory Information source: Patient Notes: Chief complaint: abdominal pain: History of complain:( obtained from----patient) 37 years old female presents today complaining having pain all over the epigastric region since this morning. Associated with nausea no vomiting. Denies any diarrhea or constipation. Denies any fever chills. Onset: As above Severity: Moderate to severe as per Quality: Sharp Context: Possible substance use Exacerbating factor and relieving factors: Unknown REVIEW OF SYSTEMS: CONSTITUTIONAL : Denies fever, chills, or sweats. Denies recent illness. EENT: Denies eye, ear, throat, or mouth pain or symptoms. Denies nasal or sinus congestion or discharge. Denies throat, tongue, or mouth swelling or difficulty swallowing. CARDIOVASCULAR: Denies chest pain. Denies palpitations or racing or irregular heart beat. Denies ankle edema. RESPIRATORY: Denies cough, cold, or chest congestion. Denies shortness of breath, difficulty breathing, or wheezing. GASTROINTESTINAL: Denies distention. Denies vomiting, or diarrhea. Denies blood in vomitus, stools, or per rectum. Denies black, tarry stools. Denies constipation. GENITOURINARY: Denies difficulty urinating, painful urination, burning, frequency, blood in urine, or discharge. FEMALE GENITOURINARY: Denies vaginal bleeding, heavy or abnormal periods, irregular periods. Denies vaginal discharge or odor. MUSCULOSKELETAL: Denies back or neck pain or stiffness. Denies joint pain or swelling. SKIN: Denies rash, lesions or sores. HEMATOLOGIC : Denies easy bruising or bleeding. LYMPHATIC: Denies swollen, enlarged glands. NEUROLOGICAL: Denies confusion or altered mental status. Denies passing out or loss of consciousness. Denies dizziness or lightheadedness. Denies headache. Denies weakness or paralysis or loss of use of either side. Denies problems with gait or speech. Denies sensory loss, numbness, or tingling. Denies seizures. PSYCHIATRIC: Denies anxiety or stress. Denies depression, suicidal ideation, or homicidal ideation. ALL OTHER SYSTEMS REVIEWED AND NEGATIVE. PHYSICAL EXAMINATION: GENERAL: Well-appearing, well-nourished and seems to be in acute distress. HEAD: Atraumatic, normocephalic. EYES: Pupils equal round and reactive to light, extraocular movements intact, conjunctiva are normal. ENT: Nares patent, oropharynx clear without exudates. Moist mucous membranes. NECK: Normal range of motion, supple without lymphadenopathy LUNGS: Breath sounds clear to auscultation bilaterally and equal. No wheezes rales or rhonchi. HEART: Regular rate and rhythm without murmurs ABDOMEN: Soft, questionable tenderness diffusely, nondistended abdomen. No guarding, no rebound. No masses appreciated. Female : deferred Musculoskeletal: Normal range of motion, no pitting or edema. No cyanosis. NEUROLOGICAL: Cranial nerves grossly intact. Normal speech, normal gait. Normal sensory, motor exams PSYCH: Normal mood, normal affect. SKIN: Warm, Dry, normal turgor, no rashes or lesions noted. Dictation was performed using [employer] voice recognition software TRAVEL OUTSIDE OF THE [place] IN LAST 30 DAYS: No - HPI Notes: 08/02/17 16:38 Dictated - Related Data Allergies/Adverse Reactions: latex [Latex] Allergy (Verified 08/02/17 11:57) morphine [Morphine] Allergy (Verified 08/02/17 11:57) Past Medical History - General Information source: Patient - Social History Smoking Status: Never Smoker Chew tobacco use (# tins/day): No Frequency of alcohol use: Social Drug Abuse: None Family History: Reviewed & Not Pertinent Patient has suicidal ideation: No Patient has homicidal ideation: No Renal/ Medical History: Denies: Hx Peritoneal Dialysis Past Surgical History: Reports: Hx Section - x3, Hx Tubal Ligation - Immunizations Immunizations up to date: Yes Hx Diphtheria, Pertussis, Tetanus Vaccination: Yes Review of Systems - Review of Systems Notes: Dictated Physical Exam - Vital signs Vitals: Temp Pulse Resp BP Pulse Ox 97.8 F 100 24 H 154/110 H 93 08/02/17 11:47 08/02/17 11:47 08/02/17 11:47 08/02/17 11:47 08/02/17 11:47 - Notes Notes: Dictated Course - Vital Signs Vital signs: Temp Pulse Resp BP Pulse Ox 97.8 F 100 17 130/71 H 98 08/02/17 11:47 08/02/17 11:47 08/02/17 15:04 08/02/17 15:04 08/02/17 15:04 - Laboratory Result Diagrams: 08/02/17 12:20 08/02/17 12:20 Laboratory results interpreted by me: 08/02/17 08/02/17 12:20 12:20 WBC 12.0 H MCV 75 L MCH 24.7 L RDW 15.4 H Absolute Neutrophils 9.2 H Glucose 128 H Total Protein 8.9 H Albumin 5.1 H - Diagnostic Test Radiology reviewed: Reports reviewed - CT of the abdomen reported by radiologist as unremarkable. - EKG Interpretation by Me EKG shows normal: Sinus rhythm, [place] - 82 bpm normal axis no acute ST elevation ST depression T-wave changes noted. Rate: Normal Discharge - Discharge Clinical Impression: Cocaine abuse, Cannabis abuse, Chronic pain syndrome Abdominal pain Qualifiers: Abdominal location: generalized Qualified Code(s): R10.84 - Generalized abdominal pain Nausea & vomiting Qualifiers: Vomiting type: unspecified Vomiting Intractability: non-intractable Qualified Code(s): R11.2 - Nausea with vomiting, unspecified Condition: Fair Disposition: HOME, SELF-CARE Instructions: Cocaine Abuse ([facility]), Abdominal Pain ([facility]) Prescriptions: Ondansetron [Zofran Odt] 8 mg PO Q6 #14 tab.slimdis
[2017-08-02] MEDS ORDERED: IBUPROFEN 800 MG TABLET PO ONE (16:46)
[2017-08-02] MEDS ORDERED: DICYCLOMINE HCL INJ 20 MG/2 ML AMPULE IM ONE (17:10)
[2017-08-02 17:23] VITALS: BP 137/105
== END 2017-08-02 17:23 | disposition home or self-care (01) ==
LOC: ER 11:37
DX: R10.84 Generalized abdominal pain (principal); G89.4 Chronic pain syndrome; R11.2 Nausea with vomiting, unspecified; F12.10 Cannabis abuse, uncomplicated; F14.10 Cocaine abuse, uncomplicated; Z88.5 Allergy status to narcotic agent; Z91.040 Latex allergy status; Z98.51 Tubal ligation status
CPT/HCPCS: 93005; 96376; 99284; 96372; 96361; 96374; 96375; 36415; 83690; 85025; 81025; 80053; 81001; 80307; 74177; 93010; J3490; J0500; J3010; J2765; S0164; J2550; J7120

== ENCOUNTER 2017-08-07 22:49 | Emergency (ER) | payer MEDICAID ==
--- NOTE | 2017-08-08 00:42 | ER Document Report ---
ED Medical Screen (RME) - General Chief Complaint: Nausea/Vomiting Stated Complaint: VOMITING Time Seen by Provider: 08/08/17 00:40 Mode of Arrival: Wheelchair Information source: Patient Notes: 37-year-old female presented ED for complaint of nausea and vomiting cannot keep anything down. States she was seen by her primary care doctor today and given 50 mg of Phenergan IM and told to come to the emergency room. She states she was seen recently in the emergency room and sent home and told to return if she continued to have symptoms. She states she has had abdominal pain and nausea and vomiting for over a week with no relief. She states she has vomited at least 3 or 4 large 64 ounce cups of emesis today. I have greeted and performed a rapid initial assessment of this patient. A comprehensive ED assessment and evaluation of the patient, analysis of test results and completion of medical decision making process will be conducted by an additional ED providers. TRAVEL OUTSIDE OF THE [place] IN LAST 30 DAYS: No - Related Data Allergies/Adverse Reactions: latex [Latex] Allergy (Verified 08/02/17 11:57) morphine [Morphine] Allergy (Verified 08/02/17 11:57) Past Medical History Renal/ Medical History: Denies: Hx Peritoneal Dialysis Past Surgical History: Reports: Hx Section - x3, Hx Tubal Ligation - Immunizations Immunizations up to date: Yes Hx Diphtheria, Pertussis, Tetanus Vaccination: Yes Physical Exam - Vital signs Vitals: Temp Pulse Resp BP Pulse Ox 98.7 F 105 H 18 137/94 H 97 08/07/17 23:29 08/07/17 23:29 08/07/17 23:29 08/07/17 23:29 08/07/17 23:29 Course - Vital Signs Vital signs: Temp Pulse Resp BP Pulse Ox 98.7 F 105 H 18 137/94 H 97 08/07/17 23:29 08/07/17 23:29 08/07/17 23:29 08/07/17 23:29 08/07/17 23:29
[2017-08-08] MEDS: NORMAL SALINE 1000 ML 1,000 ML IV PRN ×2 (00:45→01:45)
[2017-08-08 01:02] LABS: ABSOLUTE BASOPHILS # (AUTO) 0.1 10^3/uL (0.0-0.2); ABSOLUTE EOSINOPHILS # (AUTO) 0.1 10^3/uL (0.0-0.6); ABSOLUTE MONOCYTES (AUTO) 1.5 10^3/uL (0.1-1.4); ABSOLUTE NEUT (AUTO) 12.6 10^3/uL (1.7-8.2); BASOPHILS % (AUTO) 0.7 % (0-2); EOSINOPHILS % (AUTO) 0.8 % (0-6); HEMATOCRIT 43.7 % (36.0-47.0); HEMOGLOBIN 14.6 g/dL (12.0-15.5); MEAN CORPUSCULAR HEMOGLOBIN 24.6 pg (27.0-33.4); MEAN CORPUSCULAR HGB CONC 33.3 g/dL (32.0-36.0); MEAN CORPUSCULAR VOLUME 74 fl (80-97); MONOCYTES % (AUTO) 8.5 % (3-13); PLATELET COUNT 315 10^3/uL (150-450); RED BLOOD COUNT 5.93 10^6/uL (3.72-5.28); RED CELL DISTRIBUTION WIDTH 14.9 % (11.5-14.0); TOTAL CELLS COUNTED % (AUTO) 100 %; WHITE BLOOD COUNT 17.3 10^3/uL (4.0-10.5)
[2017-08-08 01:19] LABS: ALANINE AMINOTRANSFERASE 43 U/L (9-52); ALBUMIN 5.1 g/dL (3.5-5.0); ALKALINE PHOSPHATASE 137 U/L (38-126); ANION GAP 17 (5-19); ASPARTATE AMINO TRANSFERASE 35 U/L (14-36); BILIRUBIN,DIRECT 0.5 mg/dL (0.0-0.4); BLOOD UREA NITROGEN 15 mg/dL (7-20); CALCIUM 10.1 mg/dL (8.4-10.2); CARBON DIOXIDE 28 mmol/L (22-30); CHLORIDE 91 mmol/L (98-107); GLUCOSE 127 mg/dL (75-110); POTASSIUM 3.3 mmol/L (3.6-5.0); SODIUM 136.4 mmol/L (137-145)
--- NOTE | 2017-08-08 02:48 | ER Document Report ---
ED General - General Mode of Arrival: Wheelchair Information source: Patient TRAVEL OUTSIDE OF THE [place] IN LAST 30 DAYS: No - HPI Onset: Last week - for the last week since last visit to this ED on 08/02 Onset/Duration: Intermittent, Worse Quality of pain: Achy, Sharp, Stabbing Severity: Mild Associated symptoms: Nausea, Vomiting. denies: Diarrhea Exacerbated by: Movement, Food Relieved by: Denies Similar symptoms previously: Yes Recently seen / treated by doctor: Yes <MAGDA LOMELI - Last Filed: 08/08/17 07:07> <NELLY CRESPO - Last Filed: 08/08/17 09:47> - General Chief Complaint: Nausea/Vomiting Stated Complaint: VOMITING Time Seen by Provider: 08/08/17 00:40 Notes: Pt is a 37yo F presenting with 6 days of nausea, vomiting, persistent right sided abdominal pain. States she was sent home from ED on friday to go home and rest. She has not been able to keep anything down, including clear liquids. States hasn't urinated or had bowel movement this week. Although she states she has had episodes of incontinence. When feeling the need to vomit she feels pressure to void but will go to the bathroom and not be able to urinate. the pain is on her right side, around her breast, and around the right side of her back. She also reports several weeks of uncontrolled reflux especially after eating a meal. States it feels like burning up into her chest. She denies ever having an endoscopy or colonoscopy or seen by GI specialist. She does have her gallbladder. she has not taken her temperature at home but states she feels hot and cold constantly. Her father has a supposed significant GI history. She denies other recent illnesses, being around sick contacts, or recent travel. Denies being able to be as she is currently on her menses. (MAGDA LOMELI) - Related Data Allergies/Adverse Reactions: latex [Latex] Allergy (Verified 08/02/17 11:57) morphine [Morphine] Allergy (Verified 08/02/17 11:57) Past Medical History - General Information source: Patient - Social History Smoking Status: Current Every Day Smoker Smoking Education Provided: Yes - Patient counselled regarding cessation for 4 minutes Frequency of alcohol use: Occasional Drug Abuse: Cocaine, Marijuana Lives with: Spouse/Significant other Family History: Reviewed & Not Pertinent Patient has suicidal ideation: No Patient has homicidal ideation: No - Past Medical History Cardiac Medical History: Reports: None Pulmonary Medical History: Reports: None EENT Medical History: Reports: None Neurological Medical History: Reports: None Renal/ Medical History: Denies: Hx Peritoneal Dialysis Past Surgical History: Reports: Hx Section - x3, Hx Tubal Ligation - Immunizations Immunizations up to date: Yes Hx Diphtheria, Pertussis, Tetanus Vaccination: Yes <ZOHRAJONATHAN - Last Filed: 08/08/17 07:07> Review of Systems - Review of Systems Constitutional: Chills, Weakness EENT: No symptoms reported Cardiovascular: Lightheaded Respiratory: No symptoms reported Gastrointestinal: See HPI, Abdominal pain Genitourinary: Incontinence - Pressure to void but unable to urinate Female Genitourinary: Last menstrual period - 08/03/17 Musculoskeletal: Back pain, Muscle pain, Neck pain Skin: No symptoms reported <ZOHRAJONATHAN - Last Filed: 08/08/17 07:07> Physical Exam - General In distress: None - Respiratory Chest status: Tender - right side Breath sounds: Normal - Clear to auscultation bilaterally, no wheezes, rales, rhonchi Chest palpation: Tender - Cardiovascular Rhythm: Regular Heart sounds: Normal auscultation Murmur: No Gallop: None auscultated Pulses: Normal: Radial - Abdominal Inspection: Normal Distension: No distension Bowel sounds: Normal Tenderness: Tender - Mild tenderness of RUQ. - Back Back: Tender - thoracic and cervical spinal muscles - Skin Skin Temperature: Warm Skin Moisture: Dry <MAGDA LOMELI - Last Filed: 08/08/17 07:07> - Vital signs Vitals: Temp Pulse Resp BP Pulse Ox 98.7 F 105 H 18 137/94 H 97 08/07/17 23:29 08/07/17 23:29 08/07/17 23:29 08/07/17 23:29 08/07/17 23:29 Course - Laboratory Result Diagrams: 08/08/17 00:58 08/08/17 00:58 - Diagnostic Test Radiology reviewed: Image reviewed <MAGDA LOMELI - Last Filed: 08/08/17 07:07> - Laboratory Result Diagrams: 08/08/17 00:58 08/08/17 00:58 <NELLY CRESPO - Last Filed: 08/08/17 09:47> - Re-evaluation Re-evalutation: Laboratory 08/08/17 08/08/17 08/08/17 00:58 00:58 00:58 WBC 17.3 H RBC 5.93 H Hgb 14.6 Hct 43.7 MCV 74 L MCH 24.6 L MCHC 33.3 RDW 14.9 H Plt Count 315 Seg Neutrophils % 73.0 Lymphocytes % 17.0 Monocytes % 8.5 Eosinophils % 0.8 Basophils % 0.7 Absolute Neutrophils 12.6 H Absolute Lymphocytes 3.0 Absolute Monocytes 1.5 H Absolute Eosinophils 0.1 Absolute Basophils 0.1 Sodium 136.4 L Cancelled Potassium 3.3 L Cancelled Chloride 91 L Cancelled Carbon Dioxide 28 Cancelled Anion Gap 17 Cancelled BUN 15 Cancelled Creatinine 1.05 Cancelled Est GFR ( Amer) > 60 Cancelled Est GFR (Non-Af Amer) > 60 Cancelled Glucose 127 H Cancelled Calcium 10.1 Cancelled Total Bilirubin 1.0 Cancelled Direct Bilirubin 0.5 H Cancelled Neonat Total Bilirubin Not Reportable Cancelled Neonat Direct Bilirubin Not Reportable Cancelled Neonat Indirect Bili Not Reportable Cancelled AST 35 Cancelled ALT 43 Cancelled Alkaline Phosphatase 137 H Cancelled Total Protein 9.0 H Cancelled Albumin 5.1 H Cancelled Lipase 62.9 Urine Color Urine Appearance Urine pH Ur Specific [place] Urine Protein Urine Glucose (UA) Urine Ketones Urine Blood Urine Nitrite Urine Bilirubin Urine Urobilinogen Ur Leukocyte Esterase Urine WBC (Auto) Urine RBC (Auto) Squamous Epi Cells Auto Urine Mucus (Auto) Urine Ascorbic Acid Urine HCG, Qual Urine Opiates Screen Urine Methadone Screen Ur Barbiturates Screen Ur Phencyclidine Scrn Ur Amphetamines Screen U Benzodiazepines Scrn Urine Cocaine Screen U Marijuana (THC) Screen 08/08/17 08/08/17 04:40 04:40 WBC RBC Hgb Hct MCV MCH MCHC RDW Plt Count Seg Neutrophils % Lymphocytes % Monocytes % Eosinophils % Basophils % Absolute Neutrophils Absolute Lymphocytes Absolute Monocytes Absolute Eosinophils Absolute Basophils Sodium Potassium Chloride Carbon Dioxide Anion Gap BUN Creatinine Est GFR ( Amer) Est GFR (Non-Af Amer) Glucose Calcium Total Bilirubin Direct Bilirubin Neonat Total Bilirubin Neonat Direct Bilirubin Neonat Indirect Bili AST ALT Alkaline Phosphatase Total Protein Albumin Lipase Urine Color YELLOW Urine Appearance CLEAR Urine pH 6.0 Ur Specific [place] 1.010 Urine Protein NEGATIVE Urine Glucose (UA) NEGATIVE Urine Ketones TRACE H Urine Blood SMALL H Urine Nitrite NEGATIVE Urine Bilirubin NEGATIVE Urine Urobilinogen 4.0 H Ur Leukocyte Esterase NEGATIVE Urine WBC (Auto) 1 Urine RBC (Auto) 0 Squamous Epi Cells Auto 1 Urine Mucus (Auto) RARE Urine Ascorbic Acid NEGATIVE Urine HCG, Qual NEGATIVE Urine Opiates Screen UNCONFIRMED POSITIVE Urine Methadone Screen NEGATIVE Ur Barbiturates Screen NEGATIVE Ur Phencyclidine Scrn NEGATIVE Ur Amphetamines Screen NEGATIVE U Benzodiazepines Scrn NEGATIVE Urine Cocaine Screen NEGATIVE U Marijuana (THC) Screen UNCONFIRMED POSITIVE 08/08/17 05:37 Pt is a 37yo F presenting with 6 days of nausea, vomiting, persistent right sided abdominal pain. States she was sent home from ED on friday to go home and rest. She has not been able to keep anything down, including clear liquids. States hasn't urinated or had bowel movement this week. Although she states she has had episodes of incontinence. When feeling the need to vomit she feels pressure to void but will go to the bathroom and not be able to urinate. the pain is on her right side, around her breast, and around the right side of her back. She also reports several weeks of uncontrolled reflux especially after eating a meal. States it feels like burning up into her chest. Patient was seen by myself upon arrival. Vital signs were reviewed. Patient is tachycardic but afebrile, normotensive and not hypoxic. Patient does not appear toxic or dehydrated. They are in no acute distress. Previous medical records and nursing notes reviewed. Patient has a normal physical exam. Abdominal pain and breast pain are not reproducible. EKG shows the patient to be in normal sinus rhythm at a rate of 87. On multiple reevaluation patient has a different complaint. When approached about her positive drug screen patient became very defensive and states that she uses THC oil on her feet and denies cocaine use. 08/08/17 05:39 08/08/17 07:05 Patient reevaluated and is sleeping comfortably. (MAGDA LOMELI) CT angiogram of the stress is negative, abdominal ultrasound is negative, patient did stop vomiting for several hours and was able to sleep, she has two empty water cups at the bedside, she did wake up and have 1 more episode of vomiting for which she was treated with Haldol and Benadryl, this stopped her vomiting again and now she is awake. I have reassessed the patient and she states that she would like to go home because we have not been able to figure out exactly why she is vomiting and having pain in her abdomen. Patient is requesting a referral to a specialist, I agree with the patient that given her prolonged history of vomiting she does need to see a podiatrist at some time for further evaluation. 08/08/17 09:33 08/08/17 09:42 CBC does show leukocytosis which could be caused by her continuing vomiting. There is no shift, patient is low potassium at 3.3, this was repleted orally several hours before she vomited again, cardiac enzymes initially negative at 0.029 however these were repeated given her chest pain and cocaine use, they have decreased and are still negative at 0.021, albumin and protein are actually slightly elevated, lipase normal at 62.9, urine is quite well-hydrated at 1.010, there is only trace ketones, test is negative, urine drug screen shows opiates and THC. I also repeated the discussion with the patient that Dr. Lomeli already had regarding the marijuana that is detected in her urine. Patient is aware that even with topical use if there is enough THC getting into her system that it is showing up on a urine drug screen that it could be causing a hyperemesis syndrome. Patient is recommended to stop using the THC oil for 2 weeks to see if it improves her symptoms, patient is also encouraged to stop using aspirin, Motrin and Aleve for her abdominal pain, start taking Carafate 1 hour after all other medications, switch from Nexium to Zantac 150 mg twice a day and asked to follow-up with a podiatrist regarding her continued vomiting and burning epigastric and chest pain. Patient will be prescribed Carafate, Zofran and Phenergan from here. Patient will be discharged to home. She is in agreement with this plan. (NELLY CRESPO) - Vital Signs Vital signs: Temp Pulse Resp BP Pulse Ox 98.6 F 105 H 13 124/88 H 97 08/08/17 06:53 08/07/17 23:29 08/08/17 09:02 08/08/17 09:02 08/08/17 09:02 - Laboratory Laboratory results interpreted by me: 08/08/17 08/08/17 08/08/17 00:58 00:58 00:58 WBC 17.3 H RBC 5.93 H MCV 74 L MCH 24.6 L RDW 14.9 H Absolute Neutrophils 12.6 H Absolute Monocytes 1.5 H Sodium 136.4 L Potassium 3.3 L Chloride 91 L Glucose 127 H Direct Bilirubin 0.5 H Alkaline Phosphatase 137 H Creatine Kinase 422 H Total Protein 9.0 H Albumin 5.1 H Urine Ketones Urine Blood Urine Urobilinogen 08/08/17 04:40 WBC RBC MCV MCH RDW Absolute Neutrophils Absolute Monocytes Sodium Potassium Chloride Glucose Direct Bilirubin Alkaline Phosphatase Creatine Kinase Total Protein Albumin Urine Ketones TRACE H Urine Blood SMALL H Urine Urobilinogen 4.0 H Discharge <MAGDA LOMELI - Last Filed: 08/08/17 07:07> <NELLY CRESPO - Last Filed: 08/08/17 09:47> - Discharge Clinical Impression: Reflux esophagitis, Reflux gastritis, Breast pain, right, Hypokalemia Nausea & vomiting Qualifiers: Vomiting type: unspecified Vomiting Intractability: unspecified Qualified Code( s): R11.2 - Nausea with vomiting, unspecified Condition: Stable Disposition: HOME, SELF-CARE Additional Instructions: Please stop using the THC oil for the next 2 weeks. I am concerned that since there is enough of it getting into your system show up on your urine drug screen that this may be causing a cannabinoid related hyperemesis syndrome which we could be causing your vomiting and her abdominal pain. Please use the Zofran under the tongue to stop your vomiting, you may also use the Phenergan as needed for nausea and vomiting. Please stop taking the Nexium and switch to Zantac or generic equivalent 150 mg by mouth twice a day. Please also take the Carafate 1 liquid dose cup before each meal and before you go to bed. This should be taking at least an hour after you take your other medications or else she will not absorb your other medications. Please stop taking ibuprofen, aspirin and Aleve. All of this can worsen stomach irritation associated with acid and vomiting. You may continue to take acetaminophen/ Tylenol. As long as you are urinating at least twice a day and are not becoming dizzy when you stand up you do not need to return to the emergency department even if the vomiting continues. Obviously please return if your pain worsens, if he develops severe muscle cramping, if you develop blood in your vomit or if you develop any new or concerning symptoms. Your potassium was slightly low today. Please eat potassium containing foods such as bananas. I do recommend that she start with a clear liquid diet for 24 hours and then slowly advance her diet using bland foods such as toast, rice, bananas and applesauce. Prescriptions: Ondansetron [Zofran Odt 4 mg Tablet] 4 mg PO Q4HP PRN #30 tab.rapdis PRN Reason: Promethazine HCl [Phenergan 25 mg Tablet] 25 - 50 mg PO ASDIR PRN #12 tablet PRN Reason: Ranitidine HCl [Zantac 150 mg Tablet] 150 mg PO BID #60 tablet Sucralfate [Carafate Susp 1 Gm/10 Ml Udcup] 1 gm PO ACHS #30 udc Referrals: MANJU KIRAN JR, MD [Primary Care Provider] - Follow up as needed MAYA DIANE MD [ACTIVE STAFF] - Follow up as needed DEIDRE RODRIGUEZ MD [ACTIVE STAFF] - Follow up as needed
[2017-08-08] MEDS ORDERED: HYDROMORPHONE HCL INJ/PF 2 MG/ML AMPULE IV ONE ×2 (03:25→05:12)
[2017-08-08] MEDS ORDERED: POTASSIUM CHLORIDE 10 MEQ CAPSULE.ER PO ONE (04:24)
[2017-08-08] MEDS ORDERED: METOCLOPRAMIDE HCL ORAL SOLN 10 MG/10 ML UDCUP PO ONE (04:26)
[2017-08-08] MEDS ORDERED: MAG HYDROX/AL HYDROX/SIMETH SUSP 30 ML UDCUP PO ONE (04:26)
[2017-08-08] MEDS ORDERED: LIDOCAINE 2% VISCOUS SOLN 20 ML UDCUP PO ONE (04:26)
--- NOTE | 2017-08-08 04:43 | RADIOLOGY REPORT (SQ) ---
EXAM DESCRIPTION: Right upper abdominal ultrasound. CLINICAL HISTORY: ruq pain COMPARISON: 08/02/2017 TECHNIQUE: Real-time sonographic images of the right upper abdomen were obtained using a curved multihertz transducer. FINDINGS: Pancreas: Pancreas is not visualized due to overlying structures. Vascular: The visualized portions of the aorta and IVC are unremarkable. Liver: The liver has normal contour and echogenicity. Hepatopedal flow in the portal vein. The common bile duct measures 0.3 cm. Gallbladder: The gallbladder has a normal appearance. No gallstones identified. No wall thickening or pericholecystic fluid. Right Kidney: The right kidney measures 10.8 cm in length. No hydronephrosis, solid renal mass, or shadowing calculi. IMPRESSION: 1. No abnormality identified in the right upper abdomen.
[2017-08-08 05:00] LABS: APPEARANCE,URINE CLEAR; BILIRUBIN,URINE NEGATIVE (NEGATIVE); COLOR,URINE YELLOW; GLUCOSE, URINE NEGATIVE (NEGATIVE); KETONES,URINE TRACE mg/dL (NEGATIVE); LEUKOCYTE ESTERASE,URINE NEGATIVE (NEGATIVE); NITRITE,URINE NEGATIVE (NEGATIVE); PROTEIN,URINE NEGATIVE (NEGATIVE)
[2017-08-08 05:21] LABS: URINE AMPHETAMINES SCREEN NEGATIVE; URINE BARBITURATES SCREEN NEGATIVE; URINE BENZODIAZEPINES SCREEN NEGATIVE; URINE COCAINE SCREEN NEGATIVE; URINE MARIJUANA (THC) SCREEN UNCONFIRMED POSITIVE; URINE METHADONE SCREEN NEGATIVE; URINE PHENCYCLIDINE SCREEN NEGATIVE
[2017-08-08] MEDS ORDERED: FAMOTIDINE INJ/PF 20 MG/2 ML SDV IV ONE (05:36)
[2017-08-08] MEDS ORDERED: PROMETHAZINE HCL 25 MG TABLET PO ONE (05:46)
[2017-08-08 06:15] LABS: CREATINE KINASE MB 1.19 ng/mL (<4.55); TROPONIN I 0.029 ng/mL
--- NOTE | 2017-08-08 07:08 | RADIOLOGY REPORT (SQ) ---
EXAM DESCRIPTION: CTA of the chest per PE protocol with contrast. CLINICAL HISTORY: ruq pain/ tachycardia COMPARISON: None Available. TECHNIQUE: CTA of the chest obtained following the uncomplicated intravenous administration of 100 mL Isovue-370. 3-D/MIP reformatted images of the chest available for evaluation. DLP: 1097.04 mGycm FINDINGS: Chest: Pulmonary arteries: Contrast bolus is adequate.No filling defects identified in the pulmonary arteries to suggest pulmonary embolus. Suboptimal evaluation of the subsegmental pulmonary arterial branches due to contrast bolus timing. Thyroid:No abnormalities of the visualized thyroid. Great Vessels:Great vessels have normal anatomic configuration. Thoracic Aorta:No abnormalities of the thoracic aorta identified. Heart:No cardiomegaly, significant pericardial effusion, or coronary artery atherosclerosis Lymph Nodes:No enlarged mediastinal lymph nodes identified. Esophagus: No hiatal hernia. Other:No additional findings. Lungs:No alveolar or interstitial airspace opacities identified. Pleura:No pleural effusion or pneumothorax. Trachea/Airways:No abnormalities of the visualized trachea or airways. Bones:No destructive osseous lesions. Degenerative change of the spine. Upper Abdomen: Limited images of the upper abdomen demonstrate no definite abnormalities of visualized portions of the spleen, pancreas, liver, adrenal glands, or left kidney. IMPRESSION: This exam was performed according to our departmental dose-optimization program, which includes automated exposure control, adjustment of the mA and/or kV according to patient size and/or use of iterative reconstruction technique.
[2017-08-08] MEDS ORDERED: HALOPERIDOL LACTATE INJ 5 MG/1 ML VIAL IV ONE (08:02)
[2017-08-08] MEDS ORDERED: DIPHENHYDRAMINE HCL 50 MG/ML VIAL IV ONE (08:02)
--- NOTE | 2017-08-08 08:45 | EKG REPORT ---
SEVERITY:- ABNORMAL ECG - SINUS RHYTHM PROLONGED QT INTERVAL : Confirmed by: Micah Deng 08-Aug-2017 08:44:05
--- NOTE | 2017-08-08 08:45 | EKG REPORT ---
SEVERITY:- ABNORMAL ECG - SINUS TACHYCARDIA LVH BY VOLTAGE PROLONGED QT INTERVAL : Confirmed by: Micah Deng 08-Aug-2017 08:44:25
[2017-08-08 09:41] VITALS: BP 125/78
== END 2017-08-08 10:15 | disposition home or self-care (01) ==
LOC: ER 22:49
DX: K21.0 Gastro-esophageal reflux disease with esophagitis (principal); K29.60 Other gastritis without bleeding; R11.2 Nausea with vomiting, unspecified; N64.4 Mastodynia; R10.811 Right upper quadrant abdominal tenderness; E87.6 Hypokalemia; R32 Unspecified urinary incontinence; R19.4 Change in bowel habit; R68.83 Chills (without fever); R53.1 Weakness; M54.9 Dorsalgia, unspecified; M54.2 Cervicalgia; F17.200 Nicotine dependence, unspecified, uncomplicated; F12.10 Cannabis abuse, uncomplicated; F14.10 Cocaine abuse, uncomplicated; Z91.040 Latex allergy status
CPT/HCPCS: 93005 ×2; 96376; 99406; 99284; 96361; 96374; 96375; 36415; 82553; 82550; 83690; 85025; 81025; 80053; 81001; 84484; 80307; 76705; 71275; 93010 ×2; J1200; J1630; J3490 ×4; J1170; J7030; S0028

== ENCOUNTER 2018-11-17 08:17 | Emergency (ER) | payer MEDICAID ==
[2018-11-17 08:47] LABS: ABSOLUTE BASOPHILS # (AUTO) 0.1 10^3/uL (0.0-0.2); ABSOLUTE LYMPHOCYTES (AUTO) 0.8 10^3/uL (0.5-4.7); ABSOLUTE MONOCYTES (AUTO) 0.8 10^3/uL (0.1-1.4); ABSOLUTE NEUT (AUTO) 7.3 10^3/uL (1.7-8.2); BASOPHILS % (AUTO) 0.6 % (0-2); EOSINOPHILS % (AUTO) 0.2 % (0-6); HEMATOCRIT 36.9 % (36.0-47.0); HEMOGLOBIN 12.2 g/dL (12.0-15.5); LYMPHOCYTES % (AUTO) 9.1 % (13-45); MEAN CORPUSCULAR HEMOGLOBIN 24.4 pg (27.0-33.4); MEAN CORPUSCULAR HGB CONC 33.1 g/dL (32.0-36.0); MEAN CORPUSCULAR VOLUME 74 fl (80-97); PLATELET COUNT 272 10^3/uL (150-450); RED BLOOD COUNT 5.01 10^6/uL (3.72-5.28); RED CELL DISTRIBUTION WIDTH 16.2 % (11.5-14.0); SEGMENTED NEUTROPHILS % (AUTO) 81.1 % (42-78); TOTAL CELLS COUNTED % (AUTO) 100 %
[2018-11-17] MEDS ORDERED: NORMAL SALINE 1000 ML 1,000 ML IV ONE (08:49)
[2018-11-17] MEDS ORDERED: HALOPERIDOL LACTATE INJ 5 MG/1 ML VIAL IV ONE (08:49)
[2018-11-17] MEDS ORDERED: DIPHENHYDRAMINE HCL 50 MG/ML VIAL IV ONE (08:49)
[2018-11-17 08:53] LABS: PROTHROMBIN TIME 13.1 SEC (11.4-15.4)
--- NOTE | 2018-11-17 08:53 | ER Document Report ---
ED GI/ - General Chief Complaint: Abdominal Pain Stated Complaint: ABDOMINAL PAIN Time Seen by Provider: 11/17/18 08:47 Primary Care Provider: MANJU KIRAN JR, MD [NO LOCAL MD] - Follow up as needed Notes: 38-year-old female presents to the ER complaining of abdominal pain nausea vomiting for the last several days. Patient does smoke marijuana. Has been seen here multiple occasions before for the same. She complains of severe discomfort starting several days ago last night she was having some trouble defecating. She stated when she wiped she saw blood on the tissue. The patient denies chest pain denies shortness of breath but does complain she aches all over patient is crying tearful and screaming loudly. He denies any fever or chills. TRAVEL OUTSIDE OF THE [place] IN LAST 30 DAYS: No - Related Data Allergies/Adverse Reactions: latex [Latex] Allergy (Verified 08/02/17 11:57) morphine [Morphine] Allergy (Verified 08/02/17 11:57) Past Medical History - Social History Smoking Status: Current Every Day Smoker Family History: Reviewed & Not Pertinent Renal/ Medical History: Denies: Hx Peritoneal Dialysis Past Surgical History: Reports: Hx Section - x3, Hx Tubal Ligation - Immunizations Immunizations up to date: Yes Hx Diphtheria, Pertussis, Tetanus Vaccination: Yes Review of Systems - Review of Systems Constitutional: denies: Chills, Fever EENT: denies: Nose congestion, Throat pain Cardiovascular: denies: Chest pain, Dyspnea Respiratory: denies: Short of breath Gastrointestinal: Abdominal pain, Nausea, Vomiting, Constipation, Rectal bleedi ng Genitourinary: denies: Dysuria, Hematuria Neurological/Psychological: Anxiety, Other - Histrionic -: Yes All other systems reviewed and negative Physical Exam - Vital signs Vitals: Temp Pulse Resp BP Pulse Ox 98.8 F 97 24 H 155/99 H 99 11/17/18 08:22 11/17/18 08:22 11/17/18 08:22 11/17/18 08:22 11/17/18 08:22 - Notes Notes: GENERAL_APPEARANCE: well_nourished, alert, crying, histrionic wailing loudly VITALS: reviewed, see vital signs table. HEAD: no_swelling\tenderness on the head. EYES: PERRL, EOMI, conjunctiva_clear. NOSE: no_nasal_discharge. MOUTH: (-)decreased moisture. THROAT: no_tonsilar_inflammation, no_airway_obstruction. no_lymphadenopathy NECK: supple, no_neck_tenderness, (-)thyromegaly. BACK: no_back_tenderness. CHEST_WALL: no_chest_tenderness. LUNGS: no_wheezing, no_rales, no_rhonchi, (-)accessory muscle use, good air exchange bilateral. HEART: normal_rate, normal_rhythm, normal_S1, normal_S2, (-)S3, (-)S4, no_murmur, no_rub. ABDOMEN: normal_BS, soft, gastric_abd_tenderness, (-)guarding, (-)rebound, no_organomegaly, no_abd_masses. EXTREMITIES: good pulses in all_extremities, no_swelling\tenderness in the extremities, no_edema. SKIN: warm, dry, good_color, no_rash. MENTAL_STATUS: speech_clear, oriented_X_3, histrionic_affect, responds_appropri ately to questions. Course - Re-evaluation Re-evalutation: 11/17/18 08:52 38-year-old female presents with abdominal discomfort nausea vomiting. Patient can be heard throughout the ER wailing loudly screaming and carrying on. On evaluation of the patient she is crying tearful screaming anxious. Her abdomen is pretty soft and supple she had some mild epigastric discomfort. She does have a history of marijuana abuse and likely has some cyclic vomiting issues. Because of this we will give her some IV Benadryl and Haldol. This seems to be very effective against this kind of thing. This will also help with her anxiety . We will CT scan her abdomen she is had several CTs already this year it is very difficult to examine her clinically because she is just so impressively histrionic. Therefore I think a scan is warranted. We will check some generalized blood work. Give her IV fluids. We will monitor her. Likely if she had some constipation and vomiting which explains the blood on her tissue. 11/17/18 11:26 Patient is a lot more agreeable after some Haldol and Benadryl. Spoke with her about this reexamined her abdomen shows a little bit of epigastric discomfort. But much improved she still feels little nauseous we will let her go home with Reglan. I spoke with her about cessation of cannabis. Spoke with her about chronic abdominal discomfort. Her lab work looked really good CT scan was negative she did have a little bit of blood in her urine. I think her blood she saw on the tissue may have been due to constipation. Her hemoglobin is normal. This is likely an exacerbation of her chronic cyclic vomiting. The patient will be discharged home - Vital Signs Vital signs: Temp Pulse Resp BP Pulse Ox 98.8 F 97 17 155/99 H 99 11/17/18 08:22 11/17/18 08:22 11/17/18 10:00 11/17/18 08:22 11/17/18 10:00 - Laboratory Result Diagrams: 11/17/18 08:33 11/17/18 08:33 Laboratory results interpreted by me: 11/17/18 11/17/18 11/17/18 08:33 08:33 09:30 MCV 74 L MCH 24.4 L RDW 16.2 H Lymph % (Auto) 9.1 L Seg Neutrophils % 81.1 H Glucose 139 H Urine Blood LARGE H - Diagnostic Test Radiology reviewed: Reports reviewed Radiology results interpreted by me: 11/17/18 11:25 Abdomen/Pelvis CT 11/17/18 08:49 IMPRESSION: NO SIGNIFICANT OR ACUTE PROCESS IN THE ABDOMEN OR PELVIS. Discharge - Discharge Clinical Impression: Vomiting Qualifiers: Vomiting type: psychogenic vomiting Nausea presence: with nausea Qualified Code(s): F50.89 - Other specified eating disorder Condition: Good Disposition: HOME, SELF-CARE Instructions: Abdominal Pain ([facility]), Antinausea Medication ([facility]), Reglan ([facility]) Prescriptions: Metoclopramide HCl [Reglan 10 mg Tablet] 1 tab PO QID #25 tablet Referrals: MANJU KIRAN JR, MD [NO LOCAL MD] - Follow up as needed
[2018-11-17 09:13] LABS: ALBUMIN 4.5 g/dL (3.5-5.0); ALKALINE PHOSPHATASE 124 U/L (38-126); ANION GAP 11 (5-19); ASPARTATE AMINO TRANSFERASE 26 U/L (14-36); BILIRUBIN,DIRECT 0.1 mg/dL (0.0-0.4); BILIRUBIN,TOTAL 0.3 mg/dL (0.2-1.3); BLOOD UREA NITROGEN 8 mg/dL (7-20); CALCIUM 9.7 mg/dL (8.4-10.2); CARBON DIOXIDE 23 mmol/L (22-30); CHLORIDE 103 mmol/L (98-107); GLUCOSE 139 mg/dL (75-110); POTASSIUM 3.8 mmol/L (3.6-5.0); TOTAL PROTEIN 7.8 g/dL (6.3-8.2)
[2018-11-17 09:55] LABS: APPEARANCE,URINE CLEAR; BILIRUBIN,URINE NEGATIVE (NEGATIVE); COLOR,URINE STRAW; GLUCOSE, URINE NEGATIVE (NEGATIVE); KETONES,URINE NEGATIVE (NEGATIVE); LEUKOCYTE ESTERASE,URINE NEGATIVE (NEGATIVE); NITRITE,URINE NEGATIVE (NEGATIVE); PROTEIN,URINE NEGATIVE (NEGATIVE); URINE SPECIFIC GRAVITY 1.003; UROBILINOGEN,URINE NEGATIVE mg/dL (<2.0)
--- NOTE | 2018-11-17 10:14 | RADIOLOGY REPORT (SQ) ---
EXAM DESCRIPTION: CT ABD/PELVIS NO ORAL OR IV COMPLETED DATE/TIME: 11/17/2018 10:00 am REASON FOR STUDY: abd pain COMPARISON: None. TECHNIQUE: CT scan of the abdomen and pelvis performed without intravenous or oral contrast. Images reviewed with lung, soft tissue, and bone windows. Reconstructed coronal and sagittal MPR images revi ewed. All images stored on PACS. All CT scanners at this facility use dose modulation, iterative reconstruction, and/or weight based d osing when appropriate to reduce radiation dose to as low as reasonably achievable (ALARA). [facility]: Dose Right [facility]: CareDose [facility]: Dose Right [facility]: Teradose 4D [facility]: [employer] RADIATION DOSE: CT Rad equipment meets quality standard of care and radiation dose reduction techniq ues were employed. CTDIvol: 18.5 mGy. DLP: 1119 mGy-cm.mGy. LIMITATIONS: None. FINDINGS: LOWER CHEST: No significant findings. No nodules or infiltrates. NON-CONTRASTED LIVER, SPLEEN, ADRENALS: Evaluation limited by lack of IV contrast. No identified sign ificant masses. PANCREAS: No masses. No peripancreatic inflammatory changes. GALLBLADDER: No identified stones by CT criteria. No inflammatory changes to suggest cholecystitis. RIGHT KIDNEY AND URETER: No suspicious masses. Assessment limited by lack of IV contrast. There are small approximate 1 mm nonobstructing renal calculi. No hydronephrosis or hydroureter. LEFT KIDNEY AND URETER: No suspicious masses. Assessment limited by lack of IV contrast. No signifi cant calcifications. No hydronephrosis or hydroureter. AORTA AND RETROPERITONEUM: No aneurysm. No retroperitoneal masses or adenopathy. BOWEL AND PERITONEAL CAVITY: No obvious masses or inflammatory changes. No free fluid. APPENDIX: Normal. PELVIS, BLADDER, AND ABDOMINAL WALL:No abnormal masses. No free fluid. Bladder normal. BONES: No significant findings. OTHER: No other significant finding. IMPRESSION: NO SIGNIFICANT OR ACUTE PROCESS IN THE ABDOMEN OR PELVIS. COMMENT: Quality ID # [id number]: Final reports with documentation of one or more dose reduction techniques (e.g., Automated exposure control, adjustment of the mA and/or kV according to patient size, use of iterative reconstruction technique) TECHNICAL DOCUMENTATION: JOB ID: [id number] [email or web address]- All Rights Reserved Reading location - IP/workstation name: [email or web address]
[2018-11-17] MEDS ORDERED: LIDOCAINE 2% VISCOUS SOLN 20 ML UDCUP PO ONE (11:28)
[2018-11-17] MEDS ORDERED: ONDANSETRON HCL INJ/PF 4 MG/2 ML SDV IV ONE (11:28)
[2018-11-17] MEDS ORDERED: MAG HYDROX/AL HYDROX/SIMETH SUSP 30 ML UDCUP PO ONE (11:28)
[2018-11-17] MEDS ORDERED: METOCLOPRAMIDE HCL ORAL SOLN 10 MG/10 ML UDCUP PO ONE (11:28)
[2018-11-17 11:53] VITALS: BP 130/73
== END 2018-11-17 11:53 | disposition home or self-care (01) ==
LOC: ER 08:17
DX: F50.89 Other specified eating disorder (principal); K59.00 Constipation, unspecified; K62.5 Hemorrhage of anus and rectum; R10.9 Unspecified abdominal pain; R10.819 Abdominal tenderness, unspecified site; R31.9 Hematuria, unspecified; F17.200 Nicotine dependence, unspecified, uncomplicated; F41.9 Anxiety disorder, unspecified; Z98.51 Tubal ligation status; Z91.040 Latex allergy status; Z88.5 Allergy status to narcotic agent
CPT/HCPCS: 99284; 96361; 96374; 96375; 36415; 83690; 85025; 85610; 80053; 81001; 74176; J1200; J1630; J3490 ×3; J2405; J7030

== ENCOUNTER → 2019-12-27 | Outpatient (CLI) | payer MEDICAID ==
--- NOTE | 2019-12-27 13:26 | RADIOLOGY REPORT (SQ) ---
EXAM DESCRIPTION: CERV SP 3 VIEW OR LESS IMAGES COMPLETED DATE/TIME: 12/27/2019 12:39 pm REASON FOR STUDY: M54.2 CERVICALGIA M25.512 PAIN IN LEFT SHOULDER M54.2 CERVICALGIA COMPARISON: None. NUMBER OF VIEWS: Three views. TECHNIQUE: AP, lateral and odontoid radiographic images acquired of the cervical spine. LIMITATIONS: None. FINDINGS: MINERALIZATION: Normal. ALIGNMENT: Anatomic. VERTEBRAE: Vertebral bodies of normal height. DISCS: No significant disc space narrowing. No large osteophytes. HARDWARE: None in the spine. SOFT TISSUES: No masses or calcifications. Lung apices clear. OTHER: No other significant finding. IMPRESSION: NO SIGNIFICANT RADIOGRAPHIC FINDING IN THE CERVICAL SPINE. TECHNICAL DOCUMENTATION: JOB ID: [id number] 2010 [employer]- All Rights Reserved Reading location - IP/workstation name: [email or web address]
--- NOTE | 2019-12-27 13:27 | RADIOLOGY REPORT (SQ) ---
EXAM DESCRIPTION: SHOULDER LEFT 2 OR MORE VIEWS IMAGES COMPLETED DATE/TIME: 12/27/2019 12:39 pm REASON FOR STUDY: M25.512 PAIN IN LEFT SHOULDER M25.512 PAIN IN LEFT SHOULDER M54.2 CERVICALGIA COMPARISON: None. NUMBER OF VIEWS: Three views. TECHNIQUE: Internal rotation, external rotation, and Y view images acquired of the left shoulder. LIMITATIONS: None. FINDINGS: MINERALIZATION: Normal. BONES: No acute fracture. No worrisome bone lesions. JOINTS: No dislocation. VISUALIZED LUNGS AND RIBS: No pneumothorax. No rib fracture. SOFT TISSUES: No radiopaque foreign body. OTHER: No other significant finding. IMPRESSION: NEGATIVE STUDY OF THE LEFT SHOULDER. NO RADIOGRAPHIC EVIDENCE OF ACUTE INJURY. TECHNICAL DOCUMENTATION: JOB ID: [id number] 2010 [employer]- All Rights Reserved Reading location - IP/workstation name: [email or web address]
== END ==
LOC: RAD 12:04
PROVIDERS: ATTEND Nurse Practitioner Primary Care
DX: M25.512 Pain in left shoulder (principal); M54.2 Cervicalgia
CPT/HCPCS: 72040

== ENCOUNTER → 2020-02-09 | Outpatient (CLI) | payer MEDICAID ==
--- NOTE | 2020-02-09 16:23 | RADIOLOGY REPORT (SQ) ---
EXAM DESCRIPTION: CT BONE LENGTH IMAGES COMPLETED DATE/TIME: 02/09/2020 10:24 am REASON FOR STUDY: Q72.819 CONGENITAL SHORTENING OF UNSPECIFIED LOWER LIMB Q72.819 CONGENITAL SHORTE OMAR OF UNSPECIFIED LOWER LIMB COMPARISON: None. TECHNIQUE: CT scanogram of the bilateral lower extremities is performed including pelvis to ankles. Measurements of femur, tibia, and entire lower extremities performed by the radiologist and saved to PACS. All CT scanners at this facility use dose modulation, iterative reconstruction, and/or weight based d osing when appropriate to reduce radiation dose to as low as reasonably achievable (ALARA). [facility]: Dose Right [facility]: CareDose [facility]: Dose Right [facility]: Teradose 4D [facility]: [employer] RADIATION DOSE: mGy. LIMITATIONS: None. FINDINGS: RIGHT: FEMUR: 46.5 cm. TIBIA: 37.3 cm. TOTAL RIGHT LOWER EXTREMITY LENGTH (INCLUDES THE KNEE JOINT SPACE): 82.9 cm. LEFT: FEMUR: 46.3 cm. TIBIA: 37.5 cm. TOTAL LEFT LOWER EXTREMITY LENGTH (INCLUDES THE KNEE JOINT SPACE): 83 cm. IMPRESSION: LEG LENGTH MEASUREMENTS DETAILED ABOVE. TECHNICAL DOCUMENTATION: JOB ID: [id number] Quality ID # [id number]: Final reports with documentation of one or more dose reduction techniques (e.g., Au tomated exposure control, adjustment of the mA and/or kV according to patient size, use of iterative reconstruction technique) 2010 [employer]- All Rights Reserved Reading location - IP/workstation name: [email or web address]
== END ==
LOC: RAD 10:15
PROVIDERS: ATTEND Podiatrist Foot & Ankle Surgery
DX: Q72.819 Congenital shortening of unspecified lower limb (principal)
CPT/HCPCS: 77073

== ENCOUNTER 2020-02-28 11:20 | Emergency (ER) | payer MEDICAID ==
[2020-02-28] MEDS ORDERED: DIPHENHYDRAMINE HCL 50 MG/ML VIAL ONE (11:23)
[2020-02-28] MEDS ORDERED: DIPHENHYDRAMINE HCL 50 MG/ML VIAL IM ONE (11:27)
[2020-02-28] MEDS ORDERED: EPINEPHRINE INJ/PF 1 MG/1 ML AMPULE IM ONE (11:35)
[2020-02-28] MEDS ORDERED: FAMOTIDINE INJ/PF 20 MG/2 ML SDV IV ONE (11:35)
[2020-02-28] MEDS ORDERED: METHYLPREDNISOLONE INJ 125 MG/2 ML SDV IV ONE (11:36)
[2020-02-28 11:43] LABS: ABSOLUTE BASOPHILS # (AUTO) 0.2 10^3/uL (0.0-0.2); ABSOLUTE EOSINOPHILS # (AUTO) 0.2 10^3/uL (0.0-0.6); ABSOLUTE LYMPHOCYTES (AUTO) 3.2 10^3/uL (0.5-4.7); ABSOLUTE NEUT (AUTO) 7.3 10^3/uL (1.7-8.2); BASOPHILS % (AUTO) 1.3 % (0-2); EOSINOPHILS % (AUTO) 1.9 % (0-6); HEMATOCRIT 37.6 % (36.0-47.0); LYMPHOCYTES % (AUTO) 26.6 % (13-45); MEAN CORPUSCULAR HEMOGLOBIN 24.4 pg (27.0-33.4); MEAN CORPUSCULAR HGB CONC 31.9 g/dL (32.0-36.0); MEAN CORPUSCULAR VOLUME 76 fl (80-97); MONOCYTES % (AUTO) 8.8 % (3-13); PLATELET COUNT 365 10^3/uL (150-450); RED BLOOD COUNT 4.93 10^6/uL (3.72-5.28); RED CELL DISTRIBUTION WIDTH 15.7 % (11.5-14.0); SEGMENTED NEUTROPHILS % (AUTO) 61.4 % (42-78); TOTAL CELLS COUNTED % (AUTO) 100 %; WHITE BLOOD COUNT 11.9 10^3/uL (4.0-10.5)
[2020-02-28 11:45] LABS: INTERNATIONAL RATION (INR) 0.92; PARTIAL THROMBOPLASTIN TIME 28.2 SEC (23.5-35.8); PROTHROMBIN TIME 12.6 SEC (11.4-15.4)
[2020-02-28 11:59] LABS: ALBUMIN 4.4 g/dL (3.5-5.0); ALKALINE PHOSPHATASE 128 U/L (38-126); ANION GAP 11 (5-19); ASPARTATE AMINO TRANSFERASE 30 U/L (14-36); BILIRUBIN,DIRECT 0.2 mg/dL (0.0-0.4); BILIRUBIN,TOTAL 0.5 mg/dL (0.2-1.3); BLOOD UREA NITROGEN 14 mg/dL (7-20); CALCIUM 9.4 mg/dL (8.4-10.2); CARBON DIOXIDE 22 mmol/L (22-30); CHLORIDE 105 mmol/L (98-107); GLUCOSE 141 mg/dL (75-110); POTASSIUM 4.4 mmol/L (3.6-5.0); TOTAL PROTEIN 8.3 g/dL (6.3-8.2)
--- NOTE | 2020-02-28 12:11 | RADIOLOGY REPORT (SQ) ---
EXAM DESCRIPTION: CHEST SINGLE VIEW IMAGES COMPLETED DATE/TIME: 02/28/2020 11:56 am REASON FOR STUDY: dyspnea COMPARISON: None. EXAM PARAMETERS: NUMBER OF VIEWS: One view. TECHNIQUE: An AP view of the chest was obtained. RADIATION DOSE: NA LIMITATIONS: None. FINDINGS: LUNGS AND PLEURA: No consolidation, pleural effusion or pneumothorax. MEDIASTINUM AND HILAR STRUCTURES: No mediastinal or hilar contour abnormality. HEART AND VASCULAR STRUCTURES: The cardiac silhouette and pulmonary vasculature are within normal johnson its. BONES: No acute findings. HARDWARE: None in the chest. OTHER: No other finding. IMPRESSION: No acute cardiopulmonary process. TECHNICAL DOCUMENTATION: JOB ID: [id number] 2010 [employer]- All Rights Reserved Reading location - IP/workstation name: [email or web address]
--- NOTE | 2020-02-28 12:41 | RADIOLOGY REPORT (SQ) ---
EXAM DESCRIPTION: CT SOFT TISSUE NECK WITH IMAGES COMPLETED DATE/TIME: 02/28/2020 12:21 pm REASON FOR STUDY: neck swelling COMPARISON: None. TECHNIQUE: Post IV contrasted scanning from skull base through lung apices with review of bone, soft tissue and lung windows. Reconstructed coronal and sagittal MPR images reviewed. All images stored on PACS. All CT scanners at this facility use dose modulation, iterative reconstruction, and/or weight based d osing when appropriate to reduce radiation dose to as low as reasonably achievable (ALARA). [facility]: Dose Right [facility]: CareDose [facility]: Dose Right [facility]: Teradose 4D [facility]: [employer] CONTRAST TYPE AND DOSE: Contrast/concentration: Isovue 350.00 mmol/ml; Total Contrast Delivered: 74. 0 ml; Total Saline Delivered: 42.7 ml RENAL FUNCTION: None required. The patient is less than 50 years old. LIMITATIONS: None. FINDINGS: SKULL BASE: Intact. MAJOR SALIVARY GLANDS: No abnormality of the parotid or submandibular glands. LYMPHADENOPATHY: There is a cluster of prominent bilateral level Ib and IIa lymph nodes that measure up to 14 mm in long axis diameter. MUCOSAL MASSES OR ASYMMETRY: The palatine tonsils are enlarged ; there is no tonsillar or peritonsill ar abscess. The normal fat planes of the adjacent parapharyngeal and submandibular spaces is preserv ed. There is no fluid in the retropharyngeal space. LARYNX/CORDS: No abnormality. VASCULAR STRUCTURES: Patent. LUNG APICES: Clear. BONES: No fracture or dislocation. THYROID: No abnormality. PARANASAL SINUSES: Clear. OTHER: No other findings. IMPRESSION: Enlarged palatine tonsils that abut at the midline with reactive level Ib and level IIa adenopathy - correlate for an acute tonsillitis. There is no tonsillar or peritonsillar abscess. TECHNICAL DOCUMENTATION: JOB ID: [id number] Quality ID # [id number]: Final reports with documentation of one or more dose reduction techniques (e.g., Au tomated exposure control, adjustment of the mA and/or kV according to patient size, use of iterative reconstruction technique) 2010 [employer]- All Rights Reserved Reading location - IP/workstation name: [email or web address]
[2020-02-28 13:13] LABS: APPEARANCE,URINE CLEAR; BILIRUBIN,URINE NEGATIVE (NEGATIVE); COLOR,URINE STRAW; GLUCOSE, URINE NEGATIVE (NEGATIVE); KETONES,URINE NEGATIVE (NEGATIVE); PROTEIN,URINE NEGATIVE (NEGATIVE); URINE SPECIFIC GRAVITY 1.026; UROBILINOGEN,URINE NEGATIVE mg/dL (<2.0)
[2020-02-28 13:27] LABS: URINE AMPHETAMINES SCREEN NEGATIVE; URINE BARBITURATES SCREEN NEGATIVE; URINE BENZODIAZEPINES SCREEN NEGATIVE; URINE METHADONE SCREEN NEGATIVE; URINE PHENCYCLIDINE SCREEN NEGATIVE
[2020-02-28 13:30] LABS: URINE COCAINE SCREEN UNCONFIRMED POSITIVE; URINE MARIJUANA (THC) SCREEN UNCONFIRMED POSITIVE
[2020-02-28] MEDS ORDERED: BENZTROPINE MESYLATE INJ 2 MG/2 ML AMPULE IM ONE (14:08)
--- NOTE | 2020-02-28 15:26 | ER Document Report ---
ED General - General Chief Complaint: Allergic Reaction Stated Complaint: POSSIBLE ALLERGIC REACTION Time Seen by Provider: 02/28/20 11:26 Primary Care Provider: JUANI RENAE MD [Primary Care Provider] - Follow up as needed TRAVEL OUTSIDE OF THE [place] IN LAST 30 DAYS: No - HPI Notes: Chief complaint: Severe pain and swelling of neck and difficulty swallowing History of present illness: 39-year-old female followed by [facility] with history of severe gastroesophageal reflux disease recently started on metoclopramide along with a PPI now presents with sudden onset this afternoon of severe sensation of cramping and swelling in her neck and difficulty swallowing. The patient was in a total state of panic upon arrival here and I was not able to get much saline history from her initially. Her who is with her also was quite panicked and was not very helpful in providing initial history. - Related Data Allergies/Adverse Reactions: latex [Latex] Allergy (Verified 08/02/17 11:57) morphine [Morphine] Allergy (Verified 08/02/17 11:57) Past Medical History - General Information source: Patient, Relative, [facility] Records - Social History Smoking Status: Current Some Day Smoker Frequency of alcohol use: None Drug Abuse: None Family History: Reviewed & Not Pertinent Patient has homicidal ideation: No - Past Medical History Cardiac Medical History: Reports: Hx Hypertension Neurological Medical History: Reports: None Endocrine Medical History: Reports: None Renal/ Medical History: Denies: Hx Peritoneal Dialysis Psychiatric Medical History: Reports: None Past Surgical History: Reports: Hx Section - x3, Hx Tubal Ligation - Immunizations Immunizations up to date: Yes Hx Diphtheria, Pertussis, Tetanus Vaccination: Yes Review of Systems - Review of Systems -: Yes ROS unobtainable due to patient's medical condition Physical Exam - Vital signs Vitals: Pulse Ox 100 02/28/20 11:20 - Notes Notes: GENERAL: Obese female of approximately stated age who appears to be in total state of panic holding her neck in an unusual posture and hyperextending her neck. She has no drooling or stridor. She appears to have some intermittent involuntary movements with arching of her back. SKIN: Good turgor no rashes. HEAD: Normocephalic atraumatic. EYES: PERRLA. EOMI. Conjunctivae and sclerae clear. EARS: CANALS AND TMS CLEAR. NOSE: CLEAR. MOUTH/THROAT: Patient is exhibiting some unusual posturing movements of her tongue. The tongue itself does not appear to be physically swollen and the uvula is of normal appearance. There is no edema of the lips present. Moist mucosa. Good dentition. No stridor or edema. No drooling. NECK: Intense palpable spasm of the sternocleidomastoid muscle particularly on the left side. Supple. No masses or thyromegaly. No adenopathy. Carotids 2+ without bruits. No JVD. BACK: Symmetrical without tenderness. CHEST: Respirations unlabored. Breath sounds clear and symmetrical. HEART: Regular rhythm. No murmur gallop or rub. ABDOMEN: Soft nontender without masses, organomegaly or rebound. Bowel sounds normally active. No bruits. GENITALIA: Deferred. EXTREMITIES: No edema. No calf tenderness. Cap refill less than 1.5 seconds. Dorsalis pedis and posterior tibial pulses 3+ and symmetrical. NEUROLOGICAL: Very slurred speech. Patient is alert and oriented. She is moving all 4 extremities symmetrically. PSYCHIATRIC: Anxious and agitated. Course - Re-evaluation Re-evalutation: 02/28/20 15:30 I initially thought patient's appearance was most consistent with acute dystonic reaction. I had difficulty obtaining adequate history from patient and her because they were both so distraught. I initially gave the patient 50 mg of IM Benadryl. She showed some slight improvement. We obtained a list of t he patient's medications from her primary care clinic and I noticed that she had metoclopramide which further reinforce my feeling that this was likely to be a dystonic reaction. There were no antipsychotic medications on the list. Patient denied taking anyone else's medication. She continued to complain of tight sensation in her throat and when I was able to get her calm down enough to adequately palpate the neck there did seem to be some muscular spasm there versus a mass-effect. For this reason we got a soft tissue CT of the neck. This showed some prominence of the tonsils and was otherwise normal per radiology. Patient also initially received treatment on arrival for possibility of anaphylaxis. She was given IV Solu-Medrol, IV Pepcid and also IM epi. Patient rapidly improved within the first 30 minutes of arrival here. Her speech returned to normal. She was calm and appropriately conversant. When I talked with her further length she vehemently denied any use of illicit drugs. I noted however upon reviewing her old records that she had tested positive for cocaine on previous encounters here. We checked a urine drug screen here today and this was again positive for cocaine. I confronted the patient regarding presence of cocaine in urine. She proceeded to tell me that she knew where he had to come from. She states that she has a teenage son at home and that he had brought home identified white substance and she decided she takes this to see what it might contain. I am not sure that I feel that this is an accurate history and reminded her that if she is ingesting cocaine this could precipitate or worsen dystonic reactions. I observe patient for almost 3 hours and was ready to discharge her when she had a second episode of severe dystonia. I gave her 2 mg of IM Cogentin and this was promptly terminated. I am going to send her out on Cogentin for the next 5 days and have her follow-up with primary care physician. Findings, clinical impression and plan of treatment have been discussed with patient/family. Understanding of current findings and recommendations has been acknowledged by them and there is agreement regarding disposition and follow-up. - Vital Signs Vital signs: Temp Pulse Resp BP Pulse Ox 24 H 148/96 H 100 02/28/20 12:31 02/28/20 14:31 02/28/20 14:31 - Laboratory Results Result Diagrams: 02/28/20 11:24 02/28/20 11:24 Laboratory Results Interpreted: 02/28/20 02/28/20 02/28/20 11:24 11:24 12:52 WBC 11.9 H MCV 76 L MCH 24.4 L MCHC 31.9 L RDW 15.7 H Glucose 141 H Alkaline Phosphatase 128 H Total Protein 8.3 H Urine Blood LARGE H Critical Laboratory Results Reviewed: Yes Attending or Supervising Physician who Reviewed Labs: ZAC TURNER - Radiology Results Radiology Results Interpreted: 02/28/20 15:34 Chest X-Ray 02/28/20 11:28 IMPRESSION: No acute cardiopulmonary process. Soft Tissue Neck CT 02/28/20 11:32 IMPRESSION: Enlarged palatine tonsils that abut at the midline with reactive level Ib and level IIa adenopathy - correlate for an acute tonsillitis. There is no tonsillar or peritonsillar abscess. Critical Radiology Results Reviewed: No Critical Results Discharge - Discharge Clinical Impression: Dystonic reaction to metoclopramide Condition: Stable Disposition: HOME, SELF-CARE Additional Instructions: Dystonic Reaction to Medication Your symptoms were caused by the effects of medication on the "muscle control" areas of the brain. This results in uncontrollable movements and muscle spasms. The symptoms usually start with the mouth, jaw, and tongue, but may involve any area of the body. Anti-nausea medications and psychiatric medications (such as Compazine, Reglan, Haldol) can cause this side effect. The usual treatment is diphenhydramine (Benadryl). Mild cases may require only oral medication. However, intravenous medication is most rapidly effective and is usually necessary for severe reactions. It's usually a good idea to take COGENTIN by mouth for a day or two after the emergency treatment. Your doctor will discuss this with you and see that you have a prescription for the medication at the time of discharge.. It's best to avoid the medicine that caused this reaction in the future. This is not a true allergy. Illicit drugs such as COCAINE can also make this reaction much worse. Be certain that you do not take any drugs of this kind. See your doctor tomorrow for follow-up. Return if muscle pains or spasms, difficulty breathing or swallowing, or uncontrollable motions occur again. Prescriptions: Benztropine Mesylate [Cogentin 1 mg Tablet] 2 mg PO TID 5 Days #30 tablet Referrals: JUANI RENAE MD [Primary Care Provider] - Follow up as needed
[2020-02-28 15:48] VITALS: BP 151/84
== END 2020-02-28 15:48 | disposition home or self-care (01) ==
LOC: ER 11:20
DX: G24.09 Other drug induced dystonia (principal); T45.0X5A Adverse effect of antiallergic and antiemetic drugs, initial encounter; K21.9 Gastro-esophageal reflux disease without esophagitis; F41.0 Panic disorder [episodic paroxysmal anxiety]; J35.1 Hypertrophy of tonsils; R59.0 Localized enlarged lymph nodes; R13.10 Dysphagia, unspecified; F17.200 Nicotine dependence, unspecified, uncomplicated; I10 Essential (primary) hypertension; Z91.041 Radiographic dye allergy status; Z88.6 Allergy status to analgesic agent; Z88.5 Allergy status to narcotic agent
CPT/HCPCS: 99285; 96372; 96374; 96375; 36415; 85025; 85610; 85730; 80053; 81001; 80307; 71045; 70491; J0515; J1200; J0171; J2930; S0028

== ENCOUNTER 2020-02-28 22:39 | Emergency (ER) | payer MEDICAID ==
[2020-02-28] MEDS ORDERED: DIPHENHYDRAMINE HCL 25 MG CAPSULE PO ONE (23:23)
--- NOTE | 2020-02-28 23:56 | ER Document Report ---
ED General - General Chief Complaint: Allergic Reaction Stated Complaint: ALLERGIC REACTION Time Seen by Provider: 02/28/20 23:12 Primary Care Provider: JUANI RENAE MD [Primary Care Provider] - Follow up as needed Notes: Patient is a 39-year-old female who presents to the emergency department with a chief complaint of feeling as if her throat was closing up. She was actually seen here earlier in the day for a dystonic reaction to metoclopramide. Patient states that she felt her throat closing again and ended up taking some Pepcid. She then came to the emergency department. During my assessment, she reports that she does feel better after taking 40 mg of Pepcid. She did not take any Benadryl. TRAVEL OUTSIDE OF THE [place] IN LAST 30 DAYS: No - Related Data Allergies/Adverse Reactions: latex [Latex] Allergy (Verified 02/28/20 22:46) morphine [Morphine] Allergy (Verified 02/28/20 22:46) Past Medical History - General Information source: Patient - Social History Smoking Status: Former Smoker Drug Abuse: Cocaine - As per drug screen from previous visit earlier today Family History: Reviewed & Not Pertinent - Past Medical History Cardiac Medical History: Reports: Hx Hypertension Renal/ Medical History: Denies: Hx Peritoneal Dialysis Past Surgical History: Reports: Hx Section - x3, Hx Tubal Ligation - Immunizations Immunizations up to date: Yes Hx Diphtheria, Pertussis, Tetanus Vaccination: Yes Review of Systems - Review of Systems Notes: REVIEW OF SYSTEMS: CONSTITUTIONAL : Denies recent illness. Denies recent unintentional weight loss. Denies fever, chills, or sweats. EENT: Denies nasal or sinus congestion. CARDIOVASCULAR: Denies chest pain. RESPIRATORY: Denies shortness of breath, cough, congestion, difficulty rell athing, or wheezing. GASTROINTESTINAL: Denies nausea, vomiting, and diarrhea. Denies abdominal pain. Denies constipation. GENITOURINARY: Denies difficulty urinating, burning, blood in urine, urgency or frequency. MUSCULOSKELETAL: Denies neck and back pain. Denies joint pain or swelling. SKIN: Denies rash, itchiness, or lesions HEMATOLOGIC : Denies easy bruising or bleeding. LYMPHATIC: Denies swollen, painful, enlarged glands. NEUROLOGICAL: Denies no numbness or tingling denies weakness. Denies headache. Denies altered mental status. Denies alteration in speech. PSYCHIATRIC: Denies stress, anxiety, alteration in sleep patterns, or depression. All other systems reviewed and negative. Physical Exam - Vital signs Vitals: Temp Pulse Resp BP Pulse Ox 98.1 F 131 H 16 230/123 H 98 02/28/20 22:48 02/28/20 22:48 02/28/20 22:48 02/28/20 22:48 02/28/20 22:48 - Notes Notes: PHYSICAL EXAMINATION: GENERAL: Appears well, healthy, well-nourished, no acute distress. HEAD: Normocephalic, atraumatic. EYES: PERRL, conjunctiva normal, all extraocular movements intact, sclera nonicteric ENT: Moist mucous membranes. NECK: Supple, no noticeable swelling, redness, rash. Normal range of motion. LUNGS: Equal breath sounds bilaterally and clear to auscultation. No wheezes rales or rhonchi. CARDIOVASCULAR: S1-S2, regular rate, regular rhythm. Radial pulses 2+, normal. ABDOMEN: Normoactive bowel sounds. Soft, nontender, no guarding, no rebound tenderness, and no masses palpated. EXTREMITIES: Normal strength and range of motion, no pitting or edema. No cyanosis. NEUROLOGICAL: Moves all extremities upon command. Strength 5/5 in all extremities. PSYCH: Normal mood, normal affect. SKIN: Warm, dry. No rash, lesions, ulcerations noted. Normal skin turgor. Course - Re-evaluation Re-evalutation: 02/28/20 23:56 We will give the patient a dose of Benadryl and will reassess. 02/29/20 00:56 Patient states that she feels better. Airway is patent. I have a low suspicion for any life-threatening etiology at this time. Follow-up precautions were given. Verbal discharge instructions were given to the patient. They verbalized understanding. They are stable for discharge. - Vital Signs Vital signs: Temp Pulse Resp BP Pulse Ox 97.9 F 88 22 H 131/76 H 99 02/29/20 01:03 02/29/20 01:03 02/29/20 01:03 02/29/20 01:03 02/29/20 01:03 - Laboratory Results Critical Laboratory Results Reviewed: No Critical Results - Radiology Results Critical Radiology Results Reviewed: No Critical Results Discharge - Discharge Clinical Impression: Allergic reaction Qualifiers: Encounter type: initial encounter Qualified Code(s): T78.40XA - Allergy, unspecified, initial encounter Condition: Stable Disposition: HOME, SELF-CARE Additional Instructions: As discussed, take the medications prescribed to you from earlier. Add Benadryl 25 mg every 4-6 hours as needed. Referrals: JUANI RENAE MD [Primary Care Provider] - Follow up as needed
[2020-02-29 01:06] VITALS: BP 131/76
== END 2020-02-29 01:06 | disposition home or self-care (01) ==
LOC: ER 22:39
DX: T78.40XA Allergy, unspecified, initial encounter (principal); R09.89 Other specified symptoms and signs involving the circulatory and respiratory systems; F14.10 Cocaine abuse, uncomplicated; I10 Essential (primary) hypertension; Z87.891 Personal history of nicotine dependence; Z91.041 Radiographic dye allergy status; Z88.6 Allergy status to analgesic agent; Z88.5 Allergy status to narcotic agent
CPT/HCPCS: 99284; J3490